=== PATIENT | female | born 1960 | race African-American/Black ===

== ENCOUNTER 2017-02-27 19:38 | Emergency (ER) | payer MEDICARE, OTHER ==
[~2017-02-27] VITALS: Ht 165.1 cm; Wt 99.8 kg
[~2017-02-27 19:38] MED LIST: ALBUTEROL SULF8.5 GM INH; AZITHROMYCIN250 MG ORAL; BENTYL10 MG ORAL; NORCO 5-325 TA1 EACH ORAL; PHENERGAN25 M1 ORAL; PREDNISONE20 MG ORAL; PREDNISONE50 MG ORAL; PROMETHAZINE-D118 ML ORAL; ROBITUSSIN DM5 ML PO; VALIUM10 MG ORAL; ZITHROMAX250 MG ORAL
[2017-02-27] MEDS ORDERED: Norco 10mg/325mg tab ORAL ONE (20:15)
[2017-02-27] MEDS ORDERED: NORCO 5-325 TA1 EAC1 ORAL (21:16)
[2017-02-27 21:29] VITALS: BP 159/99
[2017-02-27 21:30] VITALS: BP 159/94
--- NOTE | 2017-02-27 21:55 | Emergency Room Report ---
History of Present Illness General Chief Complaint: Pain Present Illness HPI The patient is a 56-year-old female presenting with left shoulder pain.The patient states that she was using a broom 1 weeks prior and felt pain to the left shoulder. She states that she's had similar pain years prior and had MRI which diagnosed her with a torn muscle although she is unsure which one it was. She denies surgical fixation. She states this feels identical and is described as an 8/10 dull ache. Pain does not radiate. She states she is unable to fully move shoulder. She denies any other symptoms including N, V, F, chills, SOB, CP , dizziness, blurred vision Allergies: Coded Allergies: PENICILLINS (Verified Allergy, Severe, Anaphylaxis, 02/26/13) CODEINE (Verified Allergy, Intermediate, HIVES, GI UPSET & UTACARIA, ) SULFA (SULFONAMIDE ANTIBIOTICS) (Verified Allergy, Unknown, 02/27/17) Patient History Past Medical History: see triage record Pertinent Family History: none Last Menstrual Period: Menopause Now: No Reviewed Nursing Documentation: PMH: Agreed, PSxH: Agreed Nursing Documentation-PMH Hx Hypertension: Yes Hx Diabetes: Yes - borderline Hx Neurological Problems: Yes - bells palsy Review of Systems All Other Systems: negative except mentioned in HPI Physical Exam Vital Signs Date Time Temp Pulse Resp B/P Pulse Ox O2 Delivery O2 Flow Rate FiO2 02/27/17 19:46 98.4 84 16 138/83 97 Room Air Sp02 EP Interpretation: reviewed, normal General Appearance: no apparent distress, alert, GCS 15, non-toxic Head: normocephalic, atraumatic Eyes: bilateral eye PERRL, bilateral eye normal inspection ENT: hearing grossly normal, normal pharynx, no angioedema, normal voice Neck: full range of motion, supple/symm/no masses Respiratory: chest non-tender, lungs clear, normal breath sounds, speaking full sentences Cardiovascular #1: regular rate, rhythm, no edema Gastrointestinal: normal bowel sounds, non tender, soft, non-distended, no guarding, no rebound Musculoskeletal: normal inspection, decreased range of motion - L shoulder, tender - TTP over the L anterior deltoid Neurologic: alert, oriented x3, responsive, sensory intact, other - L sided facial weakness chronically d/t past surgery Psychiatric: judgement/insight normal, memory normal, mood/affect normal, no suicidal/homicidal ideation Skin: normal color, no rash, warm/dry, well hydrated Lymphatic: no adenopathy Procedures Splinting Splinting : Consent: Verbal Location: L shoulder Pre-Made Type: sling Pre-Proc Neuro Vasc Exam: normal Post-Proc Neuro Vasc Exam: normal Patient Tolerated: Well Complications: None Medical Decision Making PA Attestation Dr. Barraza is my supervising physician. Patient management was discussed with my supervising physician Diagnostic Impression: Primary Impression: Shoulder pain, left Qualified Codes: M25.512 - Pain in left shoulder ER Course The patient is a 56-year-old female presenting with left shoulder pain. Ddx considered include but not limited to sprain/strain, fracture, contusion, CVA PE: vitals WNL. 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 There is TTP over the L anterior deltoid. Limited AROM at shoulder. Full AROM of elbow and hand. SILT. No edema. No ecchymosis. L arm placed in sling and given pain medication. Pt will be DC'ed home and will FU with PMD and orthopedics. ER precautions given Last Vital Signs Date Time Temp Pulse Resp B/P Pulse Ox O2 Delivery O2 Flow Rate FiO2 02/27/17 21:30 90 20 159/94 90 Room Air 02/27/17 21:29 98.1 Status: improved Disposition: HOME, SELF-CARE Condition: Improved Scripts Hydrocodone Bit/Acetaminophen 5-325* (NORCO 5-325 TABLET*) 1 Each Tablet 1 TAB ORAL Q6HR Y for For Pain, #10 TAB Prov: PEYTON AMAYA 02/27/17 Patient Instructions: Shoulder Pain Additional Instructions: I discussed my findings with the patient. All questions and concerns have been answered. Treatment and medication compliance have been addressed. I advised the patient that they need to follow up with PMD in 3-5 days. Return to ED if pain remains or worsens, numbness or tingling occurs, new rash is noticed, fever is noticed, or if needed for any reason. Patient verbalized understanding of discharge instructions. The patient may need MRI as instructed. She will followup with primary doctor as well as orthopedics. PEYTON AMAYA Feb 27, 2017 21:55
== END 2017-02-27 21:32 | disposition home or self-care (01) ==
LOC: EMR 20:25
DX: M25.512 Pain in left shoulder (principal); I10 Essential (primary) hypertension; G51.0 Bell's palsy; Z88.6 Allergy status to analgesic agent; Z88.0 Allergy status to penicillin; Z88.2 Allergy status to sulfonamides
CPT/HCPCS: 29240; 99283

== ENCOUNTER 2017-10-20 14:12 | Inpatient (IN) | payer MEDICARE, OTHER ==
[~2017-10-20] VITALS: Ht 165.1 cm; Wt 97.1 kg
[~2017-10-20 14:12] MED LIST changes: +NORCO 5-325 TA1 EAC1 ORAL
[2017-10-20] MEDS ORDERED: Morphine Sulfate 4mg/ml Inj IVP ONE (15:00)
[2017-10-20] MEDS ORDERED: Ipratropium 0.02% Inh Soln 2.5ml UD HHN ONE (15:00)
[2017-10-20] MEDS ORDERED: Levalbuterol Inh UD 1.25mg/0.5ml HHN ONE (15:00)
--- NOTE | 2017-10-20 15:06 | Emergency Room Report ---
History of Present Illness General Chief Complaint: Generalized Weakness Source: Patient Present Illness HPI Patient present with complaints of bodyaches\ pain to the forehead Fever Cough Patient has increased nausea dry heaving Denies any diarrhea Mild epigastric discomfort Symptoms started on Friday Denies any neck pain or photophobia Bodyache and headache is 4/10 Denies any recent travel denies any focal weakness Allergies: Coded Allergies: PENICILLINS (Verified Allergy, Severe, Anaphylaxis, 02/26/13) SULFA (SULFONAMIDE ANTIBIOTICS) (Verified Allergy, Unknown, 02/27/17) Patient History Past Medical History: see triage record Pertinent Family History: none Reviewed Nursing Documentation: PMH: Agreed, PSxH: Agreed Nursing Documentation-PMH Hx Hypertension: Yes Hx Diabetes: Yes - borderline Hx Neurological Problems: Yes - bells palsy Review of Systems All Other Systems: negative except mentioned in HPI Physical Exam Vital Signs Date Time Temp Pulse Resp B/P (MAP) Pulse Ox O2 Delivery O2 Flow Rate FiO2 10/20/17 14:40 100.6 127 18 138/85 92 Room Air Sp02 EP Interpretation: reviewed, normal General Appearance: mild distress - patient appears uncomfortable Head: normocephalic, atraumatic Eyes: bilateral eye PERRL, bilateral eye EOMI ENT: hearing grossly normal, normal pharynx, TMs + canals normal, uvula midline Neck: full range of motion, supple, no meningismus, no bony tend Respiratory: no respiratory distress, no retraction, no accessory muscle use, crackles - both lower lobes Cardiovascular #1: normal peripheral pulses, no edema, no gallop, no JVD, no murmur, tachycardia Gastrointestinal: normal bowel sounds, non tender, soft, no mass, no organomegaly, non-distended, no guarding, no hernia, no pulsatile mass, no rebound Genitourinary: no CVA tenderness Musculoskeletal: normal inspection Neurologic: oriented x3, responsive, director phone III-XII nml as tested, motor strength/ tone normal, sensory intact Psychiatric: mood/affect normal Skin: normal color, no rash, warm/dry, palpation normal Lymphatic: normal inspection, no adenopathy Medical Decision Making Diagnostic Impression: Primary Impression: Flu syndrome Additional Impression: Dyspnea ER Course Patient is a fairly complex patient with multiple differential to consideration including but not limited to cardiac cardiopulmonary, infectious and vascular emergencies Patient's blood work or at baseline levels chest x-ray does not show any obvious acute pathology patient did better with her tachycardia At this time still feels very weak feels somewhat short of breath Patient was initially as a home by herself and does not feel comfortable and will be admitted for further inpatient care Labs Test 10/20/17 15:17 10/20/17 17:08 White Blood Count 8.2 K/UL (4.8-10.8) Red Blood Count 4.78 M/UL (4.20-5.40) Hemoglobin 14.4 G/DL (12.0-16.0) Hematocrit 42.2 % (37.0-47.0) Mean Corpuscular Volume 88 FL (80-99) Mean Corpuscular Hemoglobin 30.1 PG (27.0-31.0) Mean Corpuscular Hemoglobin Concent 34.0 G/DL (32.0-36.0) Red Cell Distribution Width 12.4 % (11.6-14.8) Platelet Count 296 K/UL (150-450) Mean Platelet Volume 7.4 FL (6.5-10.1) Neutrophils (%) (Auto) 76.3 % (45.0-75.0) Lymphocytes (%) (Auto) 15.5 % (20.0-45.0) Monocytes (%) (Auto) 7.0 % (1.0-10.0) Eosinophils (%) (Auto) 0.0 % (0.0-3.0) Basophils (%) (Auto) 1.3 % (0.0-2.0) Sodium Level 131 MMOL/L (136-145) Potassium Level 3.5 MMOL/L (3.5-5.1) Chloride Level 95 MMOL/L (98-107) Carbon Dioxide Level 24 MMOL/L (21-32) Anion Gap 12 mmol/L (5-15) Blood Urea Nitrogen 8 mg/dL (7-18) Creatinine 1.1 MG/DL (0.55-1.30) Estimat Glomerular Filtration Rate > 60 mL/min (>60) Glucose Level 115 MG/DL (74-106) Lactic Acid Level 1.20 mmol/L (0.66-2.22) Calcium Level 9.8 MG/DL (8.5-10.1) Total Bilirubin 0.8 MG/DL (0.2-1.0) Aspartate Amino Transf (AST/SGOT) 27 U/L (15-37) Alanine Aminotransferase (ALT/SGPT) 12 U/L (12-78) Alkaline Phosphatase 112 U/L (46-116) Total Creatine Kinase 844 U/L (26-308) Creatine Kinase MB 1.1 NG/ML (0.0-3.6) Creatine Kinase MB Relative Index 0.1 Troponin I 0.015 ng/mL (0.000-0.056) Pro-B-Type Natriuretic Peptide 372 pg/mL (0-125) Total Protein 8.5 G/DL (6.4-8.2) Albumin 4.0 G/DL (3.4-5.0) Globulin 4.5 g/dL Albumin/Globulin Ratio 0.9 (1.0-2.7) Lipase 70 U/L (73-393) Rhythm Strip Diag. Results EP Interpretation: yes Rate: 110 Rhythm: no PVC's, no ectopy, other - sinus tach Chest X-Ray Diagnostic Results Chest X-Ray Diagnostic Results : Chest X-Ray Ordered: Yes # of Views/Limited/Complete: 1 View Indication: Shortness of Breath EP Interpretation: Yes Interpretation: no consolidation, no effusion, no pneumothorax, other - cardiomegaly Impression: No acute disease Last Vital Signs Date Time Temp Pulse Resp B/P (MAP) Pulse Ox O2 Delivery O2 Flow Rate FiO2 10/20/17 14:40 100.6 127 18 138/85 92 Room Air Status: improved Disposition: ADMITTED INPATIENT Condition: Serious ROCIO SOUZA D.O. Oct 20, 2017 15:06
[2017-10-20 15:34] LABS: BASOPHILS % (AUTO) 1.3 % (0.0-2.0); HEMATOCRIT 42.2 % (37.0-47.0); HEMOGLOBIN 14.4 G/DL (12.0-16.0); LYMPHOCYTES % (AUTO) 15.5 % (20.0-45.0); MEAN CORPUSCULAR VOLUME 88 FL (80-99); NEUTROPHILS % (AUTO) 76.3 % (45.0-75.0); PLATELET COUNT 296 K/UL (150-450); RED BLOOD COUNT 4.78 M/UL (4.20-5.40); RED CELL DISTRIBUTION WIDTH 12.4 % (11.6-14.8); WHITE BLOOD COUNT 8.2 K/UL (4.8-10.8)
--- NOTE | 2017-10-20 16:07 | Diagnostic Imaging Report ---
Indication: Dyspnea Technique: XRAY Chest 1v Comparison: 06/17/2014 Findings: Stable cardiomegaly. There is no focal airspace consolidation, pleural effusion or pneumothorax. No acute osseous abnormality seen. Impression: No radiographic evidence of acute cardiopulmonary disease. Stable cardiomegaly.
[2017-10-20 16:08] LABS: ANION GAP 12 mmol/L (5-15); BLOOD UREA NITROGEN 8 mg/dL (7-18); CALCIUM 9.8 MG/DL (8.5-10.1); CARBON DIOXIDE 24 MMOL/L (21-32); CHLORIDE 95 MMOL/L (98-107); CREATININE 1.1 MG/DL (0.55-1.30); POTASSIUM 3.5 MMOL/L (3.5-5.1); SODIUM 131 MMOL/L (136-145)
[2017-10-20 16:16] LABS: ALANINE AMINOTRANSFERASE 12 U/L (12-78); ALBUMIN/GLOBULIN RATIO 0.9 (1.0-2.7); ALKALINE PHOSPHATASE 112 U/L (46-116); ASPARTATE AMINO TRANSFERASE 27 U/L (15-37); CKMB 1.1 NG/ML (0.0-3.6); CREATINE KINASE 844 U/L (26-308)
[2017-10-20 16:34] LABS: BILIRUBIN,TOTAL 0.8 MG/DL (0.2-1.0)
[2017-10-20 16:47] VITALS: BP 152/70
[2017-10-20 18:02] VITALS: BP 138/65
[2017-10-20 18:07] LABS: APPEARANCE,URINE CLEAR; BILIRUBIN, URINE NEGATIVE (NEGATIVE); GLUCOSE, URINE (UA) NEGATIVE (NEGATIVE); KETONES,URINE NEGATIVE (NEGATIVE); LEUKOCYTE ESTERASE ,URINE 1+ (NEGATIVE); NITRITE,URINE NEGATIVE (NEGATIVE); PH,URINE 6 (4.5-8.0); PROTEIN,URINE 2+ (NEGATIVE); UROBILINOGEN,URINE NORMAL MG/DL (0.0-1.0)
[2017-10-20 18:11] LABS: COLOR,URINE YELLOW
[2017-10-20] MEDS ORDERED: HYDROCHLOROTH12.5 M2 ORAL (18:17)
[2017-10-20] MEDS ORDERED: NORVASC10 MG ORAL (18:17)
[2017-10-20] MEDS ORDERED: VENTOLIN HFA18 GM INH (18:17)
[2017-10-20] MEDS ORDERED: SYMBICORT 16010.2 G1 IH (18:17)
[2017-10-20] MEDS ORDERED: LORazepam Inj 2mg/ml 1ml IV PRN (18:45)
[2017-10-20] MEDS ORDERED: Morphine Sulfate 4mg/ml Inj IVP PRN (18:45)
[2017-10-20] MEDS ORDERED: Miralax 17gm pkt ORAL PRN (18:45)
[2017-10-20] MEDS: Albuterol/Ipratropium 3ml neb HHN PRN (19:43)
[2017-10-20 20:00] VITALS: BP 117/92
[2017-10-20] MEDS ORDERED: Vancomycin 1.5gm/D5W 250ml 250 ML IVPB SCH (20:00)
[2017-10-20] MEDS: Heparin 5000 units/ml inj SUBQ SCH (20:21)
[2017-10-20] MEDS ORDERED: Cefepime HCl 2 GM in D5W 110 ML IV SCH (21:00)
[2017-10-21] VITALS: BP 129/75
[2017-10-21 04:00] VITALS: BP 116/75
[2017-10-21] MEDS ORDERED: MECLIZINE HCL25 MG ORAL (06:09)
[2017-10-21 07:22] LABS: BASOPHILS % (AUTO) 1.7 % (0.0-2.0); HEMATOCRIT 42.4 % (37.0-47.0); LYMPHOCYTES % (AUTO) 28.2 % (20.0-45.0); MEAN CORPUSCULAR VOLUME 91 FL (80-99); MONOCYTES % (AUTO) 14.9 % (1.0-10.0); NEUTROPHILS % (AUTO) 55.2 % (45.0-75.0); PLATELET COUNT 264 K/UL (150-450); RED BLOOD COUNT 4.66 M/UL (4.20-5.40); RED CELL DISTRIBUTION WIDTH 12.8 % (11.6-14.8); WHITE BLOOD COUNT 5.3 K/UL (4.8-10.8)
[2017-10-21 07:45] LABS: ALBUMIN 3.4 G/DL (3.4-5.0); ANION GAP 8 mmol/L (5-15); BLOOD UREA NITROGEN 9 mg/dL (7-18); CALCIUM 9.4 MG/DL (8.5-10.1); CARBON DIOXIDE 26 MMOL/L (21-32); CHLORIDE 101 MMOL/L (98-107); CREATININE 1.1 MG/DL (0.55-1.30); PHOSPHORUS 4.2 MG/DL (2.5-4.9); SODIUM 135 MMOL/L (136-145)
[2017-10-21] MEDS: Meclizine 25mg tab ORAL SCH (08:27)
[2017-10-21 08:32] VITALS: BP 141/86
[2017-10-21] MEDS: Heparin 5000 units/ml inj SUBQ SCH ×2 (08:38→21:00)
[2017-10-21] MEDS: Albuterol/Ipratropium 3ml neb HHN PRN ×2 (08:58→20:06)
--- NOTE | 2017-10-21 11:10 | Consultation ---
Consult Note Consult Note ID DIC # [id number] GLENDA NORWOOD M.D. Oct 21, 2017 11:10
[2017-10-21 11:39] VITALS: BP 119/60
[2017-10-21] MEDS ORDERED: Promethazine/Codeine 5ml UD ORAL PRN (11:45)
--- NOTE | 2017-10-21 11:59 | History and Physical ---
History of Present Illness General Date patient seen: Oct 21, 2017 Reason for Hospitalization: Generalized Weakness Present Illness HPI 57 year old female with hx of COPD presented with complaints of body-aches\ pain to the forehead, Fever and Cough for s few days. Patient has increased nausea dry heaving. She was sos short of breath that she couldn't smoke any more. Allergies: Coded Allergies: LISINOPRIL (Verified Allergy, Severe, 10/20/17) swellinh PENICILLINS (Verified Allergy, Severe, Anaphylaxis, 02/26/13) SULFA (SULFONAMIDE ANTIBIOTICS) (Verified Allergy, Unknown, 02/27/17) Medication History Scheduled Amlodipine Besylate (Norvasc), 10 MG ORAL DAILY, (Reported) Hydrochlorothiazide* (Hydrochlorothiazide*), 12.5 MG ORAL DAILY, (Reported) Meclizine Hcl* (Meclizine*), 25 MG ORAL DAILY, (Reported) Scheduled PRN Albuterol Sulfate (Ventolin Hfa), 1 PUFF INH EVERY 6 HOURS PRN for Prn Chest Pain, (Reported) Budesonide/Formoterol Fumarate (Symbicort 160-4.5 Mcg Inhaler), 1 PUFF IH NEEDED PRN for PRN, (Reported) Hydrocodone Bit/Acetaminophen 5-325* ([place] 5-325 Tablet*), 1 TAB ORAL Q6HR PRN for For Pain Patient History Healthcare decision maker Resuscitation status Full Code Advanced Directive on File Past Medical/Surgical History Past Medical/Surgical History: (1) COPD (chronic obstructive pulmonary disease) Review of Systems All Other Systems: negative except mentioned in HPI Physical Exam General Appearance: WD/WN Lines, tubes and drains: peripheral HEENT: normocephalic, atraumatic Neck: non-tender, normal alignment Respiratory/Chest: rhonchi - bilaterally, expiratory wheezing Cardiovascular/Chest: normal peripheral pulses Last 24 Hour Vital Signs Date Time Temp Pulse Resp B/P (MAP) Pulse Ox O2 Delivery O2 Flow Rate FiO2 10/21/17 09:03 92 20 100 Nasal Cannula 2.0 28 10/21/17 08:55 87 20 97 Nasal Cannula 2.0 28 10/21/17 08:32 98.2 89 19 141/86 97 10/21/17 08:29 89 141/84 10/21/17 07:58 Nasal Cannula 2.0 10/21/17 07:55 97 Nasal Cannula 2.0 10/21/17 07:55 97 20 Nasal Cannula 2.0 28 10/21/17 04:00 98.1 97 20 116/75 94 Nasal Cannula 2.0 10/21/17 00:00 98.4 100 20 129/75 98 Nasal Cannula 2.0 10/20/17 20:26 98 Nasal Cannula 2.0 10/20/17 20:25 97 26 Room Air 21 10/20/17 20:00 Nasal Cannula 2.0 10/20/17 20:00 97.7 97 20 117/92 98 Nasal Cannula 2.0 10/20/17 19:55 101 24 100 Room Air 21 10/20/17 19:44 97 26 98 Room Air 21 10/20/17 18:30 98.9 99 18 138/65 98 Room Air 21 10/20/17 18:02 98.9 99 18 138/65 98 Room Air 10/20/17 17:58 98.9 10/20/17 16:47 103.0 111 23 152/70 95 Room Air 10/20/17 15:54 100.5 10/20/17 15:27 122 24 98 Room Air 21 10/20/17 15:22 114 26 Room Air 21 10/20/17 15:16 114 26 92 Room Air 21 10/20/17 14:40 100.6 127 18 138/85 92 Room Air Intake and Output 10/20/17 10/21/17 19:00 07:00 Intake Total 700.000 ml Balance 700.000 ml Intake IV Total 700.000 ml # Voids 1 6 Laboratory Tests Test 10/20/17 15:17 10/20/17 17:08 10/21/17 04:45 White Blood Count 8.2 K/UL (4.8-10.8) 5.3 K/UL (4.8-10.8) Red Blood Count 4.78 M/UL (4.20-5.40) 4.66 M/UL (4.20-5.40) Hemoglobin 14.4 G/DL (12.0-16.0) 14.0 G/DL (12.0-16.0) Hematocrit 42.2 % (37.0-47.0) 42.4 % (37.0-47.0) Mean Corpuscular Volume 88 FL (80-99) 91 FL (80-99) Mean Corpuscular Hemoglobin 30.1 PG (27.0-31.0) 29.9 PG (27.0-31.0) Mean Corpuscular Hemoglobin Concent 34.0 G/DL (32.0-36.0) 32.9 G/DL (32.0-36.0) Red Cell Distribution Width 12.4 % (11.6-14.8) 12.8 % (11.6-14.8) Platelet Count 296 K/UL (150-450) 264 K/UL (150-450) Mean Platelet Volume 7.4 FL (6.5-10.1) 7.5 FL (6.5-10.1) Neutrophils (%) (Auto) 76.3 % (45.0-75.0) H 55.2 % (45.0-75.0) Lymphocytes (%) (Auto) 15.5 % (20.0-45.0) L 28.2 % (20.0-45.0) Monocytes (%) (Auto) 7.0 % (1.0-10.0) 14.9 % (1.0-10.0) H Eosinophils (%) (Auto) 0.0 % (0.0-3.0) 0.0 % (0.0-3.0) Basophils (%) (Auto) 1.3 % (0.0-2.0) 1.7 % (0.0-2.0) Sodium Level 131 MMOL/L (136-145) L 135 MMOL/L (136-145) L Potassium Level 3.5 MMOL/L (3.5-5.1) 4.0 MMOL/L (3.5-5.1) Chloride Level 95 MMOL/L (98-107) L 101 MMOL/L (98-107) Carbon Dioxide Level 24 MMOL/L (21-32) 26 MMOL/L (21-32) Anion Gap 12 mmol/L (5-15) 8 mmol/L (5-15) Blood Urea Nitrogen 8 mg/dL (7-18) 9 mg/dL (7-18) Creatinine 1.1 MG/DL (0.55-1.30) 1.1 MG/DL (0.55-1.30) Estimat Glomerular Filtration Rate > 60 mL/min (>60) > 60 mL/min (>60) Glucose Level 115 MG/DL (74-106) H 98 MG/DL (74-106) Lactic Acid Level 1.20 mmol/L (0.66-2.22) Calcium Level 9.8 MG/DL (8.5-10.1) 9.4 MG/DL (8.5-10.1) Total Bilirubin 0.8 MG/DL (0.2-1.0) Aspartate Amino Transf (AST/SGOT) 27 U/L (15-37) Alanine Aminotransferase (ALT/SGPT) 12 U/L (12-78) Alkaline Phosphatase 112 U/L (46-116) Total Creatine Kinase 844 U/L (26-308) H Creatine Kinase MB 1.1 NG/ML (0.0-3.6) Creatine Kinase MB Relative Index 0.1 Troponin I 0.015 ng/mL (0.000-0.056) Pro-B-Type Natriuretic Peptide 372 pg/mL (0-125) H Total Protein 8.5 G/DL (6.4-8.2) H Albumin 4.0 G/DL (3.4-5.0) 3.4 G/DL (3.4-5.0) Globulin 4.5 g/dL Albumin/Globulin Ratio 0.9 (1.0-2.7) L Lipase 70 U/L (73-393) L Urine Color Yellow Urine Appearance Clear Urine pH 6 (4.5-8.0) Urine Specific [place] 1.010 (1.005-1.035) Urine Protein 2+ (NEGATIVE) H Urine Glucose (UA) Negative (NEGATIVE) Urine Ketones Negative (NEGATIVE) Urine Occult Blood 4+ (NEGATIVE) H Urine Nitrite Negative (NEGATIVE) Urine Bilirubin Negative (NEGATIVE) Urine Urobilinogen Normal MG/DL (0.0-1.0) Urine Leukocyte Esterase 1+ (NEGATIVE) H Urine RBC 2-4 /HPF (0 - 2) H Urine WBC 2-4 /HPF (0 - 2) Urine Squamous Epithelial Cells Few /LPF (NONE/OCC) Urine Bacteria Few /HPF (NONE) Phosphorus Level 4.2 MG/DL (2.5-4.9) Microbiology Date/Time Source Procedure Growth Status 10/20/17 15:50 Nasal Nares Influenza Types A,B Antigen (SUJEY) - Final Complete Height (Feet): 5 Height (Inches): 5.00 Weight (Pounds): 214 Medications Current Medications Medications (Trade) Dose Ordered Sig/Gael Route PRN Reason Start Time Stop Time Status Last Admin Dose Admin Acetaminophen (Tylenol) 650 mg Q4H PRN ORAL FEVER 10/20/17 18:45 11/19/17 18:44 10/21/17 08:27 Albuterol/ Ipratropium (Albuterol/ Ipratropium) 3 ml Q4H PRN HHN Shortness of Breath 10/20/17 18:45 10/25/17 18:44 10/21/17 08:58 Amlodipine Besylate (Norvasc) 10 mg DAILY ORAL 10/21/17 09:00 11/20/17 08:59 10/21/17 08:29 Dextrose (Dextrose 50%) STAT PRN IV Hypoglycemia 10/20/17 18:45 11/19/17 18:44 Heparin Sodium (Porcine) (Heparin 5000 units/ml) 5,000 units EVERY 12 HOURS SUBQ 10/20/17 21:00 11/19/17 20:59 10/21/17 08:38 Levofloxacin 100 ml @ 100 mls/hr Q24H IVPB 10/20/17 22:00 10/27/17 21:59 10/20/17 22:32 Lorazepam (Ativan 2mg/ml 1ml) 2 mg Q2H PRN IV For Anxiety 10/20/17 18:45 10/27/17 18:44 Meclizine HCl (Antivert) 25 mg DAILY ORAL 10/21/17 09:00 11/20/17 08:59 10/21/17 08:27 Morphine Sulfate (Morphine Sulfate) 4 mg Q4H PRN IVP Severe Pain (Pain Scale 7-10) 10/20/17 18:45 10/27/17 18:44 Ondansetron HCl (Zofran) 4 mg Q6H PRN IVP Nausea & Vomiting 10/20/17 18:45 11/19/17 18:44 10/21/17 08:31 Polyethylene Glycol (Miralax) 17 gm DAILYPRN PRN ORAL Constipation 10/20/17 18:45 11/19/17 18:44 Sodium Chloride 1,000 ml @ 50 mls/hr Q20H IV 10/20/17 19:00 11/19/17 18:59 10/20/17 19:09 Assessment/Plan Problem List: (1) COPD exacerbation (2) Upper respiratory infection ICD Codes: J06.9 - Acute upper respiratory infection, unspecified SNOMED: 42586105 (3) Dyspnea ICD Codes: R06.00 - Dyspnea, unspecified SNOMED: 185625341 (4) Flu syndrome ICD Codes: J11.1 - Influenza due to unidentified influenza virus with other respiratory manifestations SNOMED: 7240528 Assessment/Plan respiratory treatment IV steroids IV abx check sputum MONAE YUNG Oct 21, 2017 11:58
[2017-10-21] MEDS: Solu-MEDROL 125mg Inj IV SCH ×3 (12:00→23:56)
[2017-10-21] MEDS: Promethazine Plain 6.25mg/5ml ORAL PRN ×2 (13:12→21:03)
[2017-10-21 15:58] VITALS: BP 149/96
[2017-10-21] MEDS: Albuterol ud Inhalation HHN SCH ×3 (16:05→22:27)
[2017-10-21] MEDS ORDERED: ASPIRIN-LOW81 MG ORAL (16:32)
[2017-10-21] MEDS ORDERED: DIAZEPAM10 MG ORAL (16:32)
[2017-10-21] MEDS ORDERED: HYDROCHLOROTHIA25 MG ORAL (16:32)
[2017-10-21] MEDS ORDERED: IBUPROFEN200 MG ORAL (16:32)
--- NOTE | 2017-10-21 17:30 | Consultation ---
DATE OF CONSULTATION: 10/21/2017 INFECTIOUS DISEASE CONSULTATION CONSULTING PHYSICIAN: Noe Mejia M.D REFERRING PHYSICIAN: Anabell Eastman M.D. REASON FOR CONSULTATION: Evaluation of the patient for pneumonia and antibiotic management. HISTORY OF PRESENT ILLNESS: The patient is a 57-year-old female with multiple medical problems, who has been admitted to this medical center for shortness of breath and cough. Infectious Disease consultation requested for evaluation of the patient's antibiotic management. The patient has been sick with some upper respiratory tract symptoms that progressed with a cough that now has began productive. The patient also developed progressive shortness of breath and because of that the patient came to the emergency room. PAST MEDICAL HISTORY: Significant for: 1. Hernandez's palsy. 2. Vertigo. 3. Acoustic neuroma. 4. History of fibroids. 5. Status post cholecystectomy. 6. History of prolapsed bladder. 7. Borderline diabetes. ALLERGIES: Penicillin and sulfa. FAMILY HISTORY: Noncontributory. REVIEW OF SYSTEMS: HEENT: No recent change in vision or hearing. The patient has left-sided stiffness. NECK: No pain. PULMONARY: As mentioned above. CARDIOVASCULAR: No chest pain. GASTROINTESTINAL/ABDOMEN: The patient has nausea, but no vomiting or diarrhea. GENITOURINARY: No dysuria. NEUROLOGIC: No seizure. SOCIAL HISTORY: Significant for smoking. MEDICATIONS: Vancomycin and Levaquin. PHYSICAL EXAMINATION: VITAL SIGNS: Temperature 98, blood pressure 141/86, pulse 89, respiratory rate 18, and T-max 103. HEENT: No pale conjunctivae. No icterus. CHEST: Coarse breathing sounds. HEART: S1 and S2. ABDOMEN: Soft, obese. EXTREMITIES: No cyanosis at this time. NEUROLOGIC: Awake. LABORATORY DATA: White blood cells 5.3, hemoglobin 14, and platelets 264,000. UA unremarkable. BUN 9 and creatinine 1. ALT, AST, and alkaline phosphatase are unremarkable. Total CK 844. Influenza A and B negative. Chest x-ray, no acute cardiopulmonary disease, cardiomegaly. ASSESSMENT: The patient is a 57-year-old female with: 1. Fever. 2. Bronchitis. 3. Probable upper respiratory tract viral infection. 4. . PLAN: 1. We will continue the patient on Levaquin, discontinue vancomycin. 2. Monitor CBC. 3. Monitor BMP. 4. Monitor chest x-ray. 5. Blood culture. 6. . 7. Based on the patient's labs, we will do further recommendation. Thank you, Dr. Eastman, for allowing me to participate in the care of this patient. I will follow the patient with you during this hospitalization. Noe Mejia M.D. DR: VITO JOB#: [id number] CC:
[2017-10-21 20:00] VITALS: BP 132/90
[2017-10-22] VITALS: BP 134/79
[2017-10-22] MEDS: Albuterol ud Inhalation HHN SCH ×2 (03:46→06:50)
[2017-10-22 04:07] VITALS: BP 165/87
[2017-10-22 04:15] VITALS: BP 157/97
[2017-10-22] MEDS: Solu-MEDROL 125mg Inj IV SCH ×2 (05:21→12:00)
[2017-10-22] MEDS: Albuterol/Ipratropium 3ml neb HHN PRN (06:49)
[2017-10-22 07:56] LABS: BASOPHILS % (AUTO) 0.8 % (0.0-2.0); HEMATOCRIT 39.7 % (37.0-47.0); HEMOGLOBIN 13.1 G/DL (12.0-16.0); MEAN CORPUSCULAR VOLUME 90 FL (80-99); MONOCYTES % (AUTO) 5.8 % (1.0-10.0); NEUTROPHILS % (AUTO) 66.4 % (45.0-75.0); PLATELET COUNT 290 K/UL (150-450); RED BLOOD COUNT 4.39 M/UL (4.20-5.40); RED CELL DISTRIBUTION WIDTH 12.7 % (11.6-14.8); WHITE BLOOD COUNT 6.2 K/UL (4.8-10.8)
[2017-10-22 08:00] VITALS: BP 139/74
[2017-10-22 08:20] LABS: ALANINE AMINOTRANSFERASE 71 U/L (12-78); ALBUMIN 3.6 G/DL (3.4-5.0); ALBUMIN/GLOBULIN RATIO 0.8 (1.0-2.7); ALKALINE PHOSPHATASE 119 U/L (46-116); ANION GAP 12 mmol/L (5-15); ASPARTATE AMINO TRANSFERASE 71 U/L (15-37); BILIRUBIN,TOTAL 0.4 MG/DL (0.2-1.0); BLOOD UREA NITROGEN 14 mg/dL (7-18); CALCIUM 9.7 MG/DL (8.5-10.1); CARBON DIOXIDE 25 MMOL/L (21-32); CHLORIDE 102 MMOL/L (98-107); CREATININE 1.2 MG/DL (0.55-1.30); POTASSIUM 3.8 MMOL/L (3.5-5.1); SODIUM 139 MMOL/L (136-145)
[2017-10-22 08:33] VITALS: BP 139/74
[2017-10-22] MEDS: Meclizine 25mg tab ORAL SCH (08:33)
[2017-10-22 08:34] LABS: PHOSPHORUS 4.4 MG/DL (2.5-4.9)
[2017-10-22] MEDS: Heparin 5000 units/ml inj SUBQ SCH (08:34)
--- NOTE | 2017-10-22 10:37 | Infectious Diseases Prog Note ---
Assessment/Plan Assessment/Plan ASSESSMENT: The patient is a 57-year-old female with: Fever, SP Bronchitis Probable upper respiratory tract viral infection. smoker Hernandez's palsy Vertigo Acoustic neuroma History of fibroids Status post cholecystectomy History of prolapsed bladder Borderline diabetes PLAN: We will continue the patient on Levaquin d# 2 / 5 10/21 SP vancomycin d# 1 Monitor CBC. Monitor BMP. Monitor chest x-ray. Blood culture. Sp culture Subjective Allergies: Coded Allergies: LISINOPRIL (Verified Allergy, Severe, 10/20/17) swellinh PENICILLINS (Verified Allergy, Severe, Anaphylaxis, 02/26/13) SULFA (SULFONAMIDE ANTIBIOTICS) (Verified Allergy, Unknown, 02/27/17) Subjective afebrile Objective Vital Signs Last 24 Hour Vital Signs Date Time Temp Pulse Resp B/P (MAP) Pulse Ox O2 Delivery O2 Flow Rate FiO2 10/22/17 08:33 87 139/74 10/22/17 08:00 97.0 87 22 139/74 94 10/22/17 06:57 98 20 100 Room Air 10/22/17 06:52 Room Air 10/22/17 06:45 94 20 97 Room Air 10/22/17 06:45 97 Room Air 10/22/17 04:15 157/97 10/22/17 04:07 97.7 94 21 165/87 95 10/22/17 03:57 95 20 100 Nasal Cannula 2.0 28 10/22/17 03:47 88 26 97 Room Air 10/22/17 00:00 97.9 94 21 134/79 96 10/21/17 22:38 88 20 100 Nasal Cannula 2.0 28 10/21/17 22:28 98 26 97 Room Air 21 10/21/17 20:07 104 26 99 Room Air 21 10/21/17 20:06 99 Room Air 10/21/17 20:06 Room Air 10/21/17 20:00 97.6 98 21 132/90 94 10/21/17 16:08 90 20 100 Nasal Cannula 2.0 28 10/21/17 15:58 97.7 91 20 149/96 95 10/21/17 15:55 85 20 97 Nasal Cannula 2.0 28 10/21/17 11:39 Nasal Cannula 2.0 10/21/17 11:39 98.0 83 19 119/60 96 Height (Feet): 5 Height (Inches): 5.00 Weight (Pounds): 214 Respiratory/Chest: no respiratory distress Cardiovascular: regularly irregular Abdomen: non distended Microbiology Date/Time Source Procedure Growth Status 10/20/17 15:17 Blood Blood Culture - Preliminary NO GROWTH AFTER 24 HOURS Resulted 10/20/17 15:10 Blood Blood Culture - Preliminary NO GROWTH AFTER 24 HOURS Resulted 10/21/17 08:45 Sputum Gram Stain Pending Resulted 10/21/17 08:45 Sputum Sputum Culture - Preliminary NORMAL UPPER RESPIRATORY LILLY AT 24 ... Resulted 10/20/17 15:50 Nasal Nares Influenza Types A,B Antigen (SUJEY) - Final Complete Laboratory Tests Test 10/22/17 07:00 White Blood Count 6.2 K/UL (4.8-10.8) Red Blood Count 4.39 M/UL (4.20-5.40) Hemoglobin 13.1 G/DL (12.0-16.0) Hematocrit 39.7 % (37.0-47.0) Mean Corpuscular Volume 90 FL (80-99) Mean Corpuscular Hemoglobin 29.8 PG (27.0-31.0) Mean Corpuscular Hemoglobin Concent 33.0 G/DL (32.0-36.0) Red Cell Distribution Width 12.7 % (11.6-14.8) Platelet Count 290 K/UL (150-450) Mean Platelet Volume 7.2 FL (6.5-10.1) Neutrophils (%) (Auto) 66.4 % (45.0-75.0) Lymphocytes (%) (Auto) 27.0 % (20.0-45.0) Monocytes (%) (Auto) 5.8 % (1.0-10.0) Eosinophils (%) (Auto) 0.0 % (0.0-3.0) Basophils (%) (Auto) 0.8 % (0.0-2.0) Erythrocyte Sedimentation Rate 52 MM/HR (0-30) H Sodium Level 139 MMOL/L (136-145) Potassium Level 3.8 MMOL/L (3.5-5.1) Chloride Level 102 MMOL/L (98-107) Carbon Dioxide Level 25 MMOL/L (21-32) Anion Gap 12 mmol/L (5-15) Blood Urea Nitrogen 14 mg/dL (7-18) Creatinine 1.2 MG/DL (0.55-1.30) Estimat Glomerular Filtration Rate 56.0 mL/min (>60) Glucose Level 164 MG/DL (74-106) H Calcium Level 9.7 MG/DL (8.5-10.1) Phosphorus Level 4.4 MG/DL (2.5-4.9) Magnesium Level 2.0 MG/DL (1.8-2.4) Total Bilirubin 0.4 MG/DL (0.2-1.0) Aspartate Amino Transf (AST/SGOT) 71 U/L (15-37) H Alanine Aminotransferase (ALT/SGPT) 71 U/L (12-78) Alkaline Phosphatase 119 U/L (46-116) H C-Reactive Protein, Quantitative 6.5 mg/dL (0.00-0.90) H Total Protein 7.9 G/DL (6.4-8.2) Albumin 3.6 G/DL (3.4-5.0) Globulin 4.3 g/dL Albumin/Globulin Ratio 0.8 (1.0-2.7) L Current Medications Medications (Trade) Dose Ordered Sig/Gael Route PRN Reason Start Time Stop Time Status Last Admin Dose Admin Acetaminophen (Tylenol) 650 mg Q4H PRN ORAL Mild Pain/Temp > 100.5 10/21/17 17:00 11/20/17 16:59 Albuterol/ Ipratropium (Albuterol/ Ipratropium) 3 ml Q4H PRN HHN Shortness of Breath 10/20/17 18:45 10/25/17 18:44 10/22/17 06:49 Amlodipine Besylate (Norvasc) 10 mg DAILY ORAL 10/21/17 09:00 11/20/17 08:59 10/22/17 08:33 Dextrose (Dextrose 50%) STAT PRN IV Hypoglycemia 10/20/17 18:45 11/19/17 18:44 Diazepam (Valium) 5 mg BIDPRN PRN ORAL For Anxiety 10/21/17 17:30 10/28/17 17:29 10/21/17 21:03 Heparin Sodium (Porcine) (Heparin 5000 units/ml) 5,000 units EVERY 12 HOURS SUBQ 10/20/17 21:00 11/19/17 20:59 10/21/17 08:38 Levofloxacin 100 ml @ 100 mls/hr Q24H IVPB 10/20/17 22:00 10/27/17 21:59 10/21/17 21:03 Lorazepam (Ativan 2mg/ml 1ml) 2 mg Q2H PRN IV For Anxiety 10/20/17 18:45 10/27/17 18:44 Meclizine HCl (Antivert) 25 mg DAILY ORAL 10/21/17 09:00 11/20/17 08:59 10/22/17 08:33 Methylprednisolone Sodium Succinate (Solu-MEDROL) 60 mg EVERY 6 HOURS IV 10/21/17 12:00 11/20/17 11:59 10/21/17 23:56 Morphine Sulfate (Morphine Sulfate) 4 mg Q4H PRN IVP Severe Pain (Pain Scale 7-10) 10/20/17 18:45 10/27/17 18:44 Ondansetron HCl (Zofran) 4 mg Q6H PRN IVP Nausea & Vomiting 10/20/17 18:45 11/19/17 18:44 10/21/17 08:31 Polyethylene Glycol (Miralax) 17 gm DAILYPRN PRN ORAL Constipation 10/20/17 18:45 11/19/17 18:44 Promethazine HCl (Phenergan Plain) 6.25 mg Q6H PRN ORAL For Cough 10/21/17 12:45 11/20/17 12:44 10/21/17 21:03 GLENDA NORWOOD M.D. Oct 22, 2017 10:36
[2017-10-22] MEDS ORDERED: LEVAQUIN500 MG ORAL (12:09)
[2017-10-22] MEDS ORDERED: prednisone (12:36)
[2017-10-22] MEDS ORDERED: PREDNISONE20 M1 PO ×2 (12:37→12:38)
[2017-10-22] MEDS ORDERED: Tubing IV Secondary IV ONE (13:04)
[2017-10-22] MEDS ORDERED: NS 275ml ONE (13:04)
--- NOTE | 2017-10-22 16:18 | Pulmonology Progress Note ---
Assessment/Plan Problems: (1) COPD exacerbation (2) Upper respiratory infection (3) Dyspnea (4) Flu syndrome Assessment/Plan improving taper steroids f/u ID recommendation dc home with oral meds Subjective ROS Limited/Unobtainable: No Allergies: Coded Allergies: LISINOPRIL (Verified Allergy, Severe, 10/20/17) swellinh PENICILLINS (Verified Allergy, Severe, Anaphylaxis, 02/26/13) SULFA (SULFONAMIDE ANTIBIOTICS) (Verified Allergy, Unknown, 02/27/17) Objective Last 24 Hour Vital Signs Date Time Temp Pulse Resp B/P (MAP) Pulse Ox O2 Delivery O2 Flow Rate FiO2 10/22/17 08:33 87 139/74 10/22/17 08:00 97.0 87 22 139/74 94 10/22/17 06:57 98 20 100 Room Air 10/22/17 06:52 Room Air 10/22/17 06:45 94 20 97 Room Air 21 10/22/17 06:45 97 Room Air 10/22/17 04:15 157/97 10/22/17 04:07 97.7 94 21 165/87 95 10/22/17 03:57 95 20 100 Nasal Cannula 2.0 28 10/22/17 03:47 88 26 97 Room Air 10/22/17 00:00 97.9 94 21 134/79 96 10/21/17 22:38 88 20 100 Nasal Cannula 2.0 28 10/21/17 22:28 98 26 97 Room Air 10/21/17 20:07 104 26 99 Room Air 21 10/21/17 20:06 99 Room Air 10/21/17 20:06 Room Air 10/21/17 20:00 97.6 98 21 132/90 94 Intake and Output 10/21/17 10/22/17 19:00 07:00 Intake Total 1130 ml 100 ml Balance 1130 ml 100 ml Intake Oral 880 ml IV Total 250 ml 100 ml # Voids 5 2 General Appearance: WD/WN HEENT: normocephalic, atraumatic, mucous membranes moist Respiratory/Chest: chest wall non-tender, no respiratory distress Cardiovascular: normal peripheral pulses, normal rate, no gallop/murmur Abdomen: normal bowel sounds, non distended, no scars Extremities: no clubbing Microbiology Date/Time Source Procedure Growth Status 10/20/17 15:17 Blood Blood Culture - Preliminary NO GROWTH AFTER 24 HOURS Resulted 10/20/17 15:10 Blood Blood Culture - Preliminary NO GROWTH AFTER 24 HOURS Resulted 10/21/17 08:45 Sputum Gram Stain - Final Resulted 10/21/17 08:45 Sputum Sputum Culture - Preliminary NORMAL UPPER RESPIRATORY LILLY AT 24 ... Resulted 10/20/17 15:50 Nasal Nares Influenza Types A,B Antigen (SUJEY) - Final Complete Laboratory Tests 10/22/17 07:00: White Blood Count 6.2, Red Blood Count 4.39, Hemoglobin 13.1, Hematocrit 39.7, Mean Corpuscular Volume 90, Mean Corpuscular Hemoglobin 29.8, Mean Corpuscular Hemoglobin Concent 33.0, Red Cell Distribution Width 12.7, Platelet Count 290, Mean Platelet Volume 7.2, Neutrophils (%) (Auto) 66.4, Lymphocytes (%) (Auto) 27.0, Monocytes (%) (Auto) 5.8, Eosinophils (%) (Auto) 0.0, Basophils (%) (Auto ) 0.8, Erythrocyte Sedimentation Rate 52H, Sodium Level 139, Potassium Level 3.8 , Chloride Level 102, Carbon Dioxide Level 25, Anion Gap 12, Blood Urea Nitrogen 14, Creatinine 1.2, Estimat Glomerular Filtration Rate 56.0, Glucose Level 164H, Calcium Level 9.7, Phosphorus Level 4.4, Magnesium Level 2.0, Total Bilirubin 0.4, Aspartate Amino Transf (AST/SGOT) 71H, Alanine Aminotransferase ( ALT/SGPT) 71, Alkaline Phosphatase 119H, C-Reactive Protein, Quantitative 6.5H, Total Protein 7.9, Albumin 3.6, Globulin 4.3, Albumin/Globulin Ratio 0.8L MONAE YUNG Oct 22, 2017 16:18
--- NOTE | 2017-10-23 14:57 | Discharge Summary ---
Discharge Summary Hospital Course Date of Admission Oct 20, 2017 at 17:04 Date of Discharge Oct 22, 2017 at 13:05 Admitting Diagnosis flu like symptoms, dyspnea HPI Ellen Gonzalez is a 57 year old female who was admitted on Oct 20, 2017 at 17:04 for Flu Like Symptoms Dyspnea Hospital Course [id number] Discharge Discharge Disposition Patient was discharged to Home (01) Discharge Diagnoses: Naomie Nunez NP Oct 23, 2017 14:57
--- NOTE | 2017-10-23 16:49 | Consultation ---
History of Present Illness General Date patient seen: Oct 21, 2017 Chief Complaint: Generalized Weakness Present Illness HPI 57-year-old female with multiple medical problems, who has been admitted to this medical center for shortness of breath and cough. the pt has been depressed, anxious, low energy and insomnia. no si/hi Allergies: Coded Allergies: LISINOPRIL (Verified Allergy, Severe, 10/20/17) swellinh PENICILLINS (Verified Allergy, Severe, Anaphylaxis, 02/26/13) SULFA (SULFONAMIDE ANTIBIOTICS) (Verified Allergy, Unknown, 02/27/17) Medication History Scheduled Amlodipine Besylate (Norvasc), 10 MG ORAL DAILY, (Reported) Aspirin (Aspirin EC), 81 MG ORAL DAILY, (Reported) Hydrochlorothiazide* (Hydrochlorothiazide*), 25 MG ORAL DAILY, (Reported) Ibuprofen (Ibuprofen*), 600 MG ORAL Q8H, (Reported) Levofloxacin* (Levaquin*), 500 MG ORAL DAILY, (Reported) Meclizine Hcl* (Meclizine*), 25 MG ORAL DAILY, (Reported) Prednisone (Prednisone), 40 MG PO DAILY, (Reported) Prednisone (Prednisone), 20 MG PO DAILY, (Reported) Prednisone (Prednisone), 10 MG PO DAILY, (Reported) Scheduled PRN Albuterol Sulfate (Ventolin Hfa), 1 PUFF INH EVERY 6 HOURS PRN for Prn Chest Pain, (Reported) Budesonide/Formoterol Fumarate (Symbicort 160-4.5 Mcg Inhaler), 1 PUFF IH NEEDED PRN for PRN, (Reported) Diazepam* (Diazepam*), 10 MG ORAL TWICE A DAY PRN for ANXIETY, (Reported) Hydrocodone Bit/Acetaminophen 5-325* ([place] 5-325 Tablet*), 1 TAB ORAL Q6HR PRN for For Pain Miscellaneous Medications [prednisone], (Reported) Discontinued Medications Hydrochlorothiazide* (Hydrochlorothiazide*), 12.5 MG ORAL DAILY, (Reported) Discontinued Reason: Medication dose changed Patient History Limited by: medical condition History Provided By: Patient, Medical Record, PMD Healthcare decision maker Resuscitation status Full Code Advanced Directive on File Past Medical/Surgical History Past Medical/Surgical History: (1) Shoulder pain (2) Upper respiratory infection (3) Ventral hernia (4) Abdominal pain (5) Shoulder pain, left (6) Bronchitis, acute (7) COPD (chronic obstructive pulmonary disease) (8) Upper respiratory infection (9) COPD exacerbation Review of Systems Psychiatric: Reports: prior hx, anxiety, depressed feelings, emotional problems Physical Exam General Appearance: alert Neurologic: alert, oriented x 3, responsive, depressed affect Height (Feet): 5 Height (Inches): 5.00 Weight (Pounds): 214 Assessment/Plan Status: stable Status Narrative mdd anxiety d/o -cont current meds Isacc Santa M.D. Oct 23, 2017 16:49
--- NOTE | 2017-10-23 16:50 | General Progress Note ---
Assessment/Plan Status: stable, progressing Assessment/Plan mdd -remeron 15mg qhs Subjective Date patient seen: Oct 22, 2017 Neurologic/Psychiatric: Reports: anxiety, depressed, emotional problems Allergies: Coded Allergies: LISINOPRIL (Verified Allergy, Severe, 10/20/17) swellinh PENICILLINS (Verified Allergy, Severe, Anaphylaxis, 02/26/13) SULFA (SULFONAMIDE ANTIBIOTICS) (Verified Allergy, Unknown, 02/27/17) Objective Height (Feet): 5 Height (Inches): 5.00 Weight (Pounds): 214 General Appearance: no apparent distress, alert Neurologic: alert, oriented x 3, responsive, depressed affect Isacc Santa M.D. Oct 23, 2017 16:49
--- NOTE | 2017-10-23 22:45 | Discharge Summary 2 SIG ---
DATE OF ADMISSION: 10/20/2017 DATE OF DISCHARGE: 10/22/2017 ACCOUNT ENGINEER: Noe Mejia M.D. BRIEF HOSPITAL COURSE: The patient is a 57-year-old female with history of chronic obstructive pulmonary disease, presented to ED with complaints of body aches and pain. The patient was having fever and cough for few days and was short of breath. Denied any recent travel or any sick contacts. On evaluation at ED, blood work did not show any leukocytosis and the patient continued to feel ill. Chest x-ray done showed no acute disease with no consolidation, no effusion, and no pneumothorax. She was seen by Infectious Disease specialist and vancomycin was switched to Levaquin. Influenza A and B were negative. She was placed on IV steroids. Blood culture did not isolate any growth. Sputum culture showed normal upper respiratory hermilo. Venous duplex was negative for acute DVT. Steroids were tapered and was eventually discharged home to continue oral medications. FINAL DIAGNOSES: 1. Acute chronic obstructive pulmonary disease exacerbation. 2. Upper respiratory infection. 3. Dyspnea. 4. Flu-like syndrome. 5. Current smoker. 6. Hernandez's palsy. 7. Vertigo. 8. Acoustic neuroma. 9. Borderline diabetes. DISPOSITION: The patient was discharged home. DISCHARGE MEDICATIONS: Continue with tapering steroids and Levaquin 500 mg p.o. for three more days. DISCHARGE INSTRUCTIONS: Follow up with PMD as outpatient. Anabell Eastman M.D. I have been assigned to dictate discharge summary on this account and I was not involved in the patient's management. Naomie Nunez N.P. DR: LATISHA JOB#: [id number] CC:
--- NOTE | 2017-10-24 11:38 | Diagnostic Imaging Report ---
APPROVED REPORT CPT Code: 80454 Present Symptoms Comments: R/O DVT Pain BILATERAL: Imaging reveals a patent deep venous system bilaterally. There is no evidence of thrombus within the femoral, popliteal or tibial segments. The greater saphenous veins are also within normal limits. Doppler indicates normal spontaneous flow within these segments.
--- NOTE | 2017-10-29 18:49 | Cardiology Report ---
APPROVED REPORT EKG Measurement Heart [id number] Sinus tachycardia Septal infarct, age undetermined Abnormal ECG
== END 2017-10-22 13:05 | disposition home or self-care (01) | DRG 192 ==
LOC: EMR 15:09 → 4E 17:04 → EDBEDREQ 17:28 → 4E 10-21 12:21
DX: J44.1 Chronic obstructive pulmonary disease with (acute) exacerbation (principal); F32.9 Major depressive disorder, single episode, unspecified; D33.3 Benign neoplasm of cranial nerves; F17.200 Nicotine dependence, unspecified, uncomplicated; J06.9 Acute upper respiratory infection, unspecified; J11.1 Influenza due to unidentified influenza virus with other respiratory manifestations; Z88.0 Allergy status to penicillin; Z88.2 Allergy status to sulfonamides; Z88.8 Allergy status to other drugs, medicaments and biological substances; G51.0 Bell's palsy; R73.03 Prediabetes; F41.9 Anxiety disorder, unspecified
CPT/HCPCS: 36415; 71045; 80053; 80069; 81003; 82550; 82553; 83605; 83690; 83735; 83880; 84100; 84484; 85025; 85651; 86140; 86710; 87040; 87070; 87205; 93005; 93970; 94640; 94664; 94760; 99285; J2405; J7620

== ENCOUNTER 2018-08-04 09:35 | Outpatient (CLI) | payer MEDICARE, OTHER ==
[~2018-08-04 09:35] MED LIST changes: +ARTIFICIAL TEAR15 ML BOTH EYES; +ASPIRIN-LOW81 MG ORAL; +DIAZEPAM10 MG ORAL; +HYDROCHLOROTH12.5 M2 ORAL; +HYDROCHLOROTHIA25 MG ORAL; +IBUPROFEN200 MG ORAL; +LEVAQUIN500 MG ORAL; +MECLIZINE HCL25 MG ORAL; +NORVASC10 MG ORAL; +PATANOL1 DROP OD; +PREDNISONE20 M1 PO; +SYMBICORT 16010.2 G1 IH; +VENTOLIN HFA18 GM INH; +prednisone
[2018-08-04 10:00] VITALS: BP 151/92
--- NOTE | 2018-08-05 15:52 | GI Initial Consult Note ---
History of Present Illness General Date patient seen: Aug 04, 2018 Time patient seen: 15:47 Referring physician: APRIL Reason for Consultation: COLONOSCOPY Present Illness HPI 57 year old female patient referred by Dr. Dunlap presents today with c/o of abdominal pain, GERD and constipation. Stated she had recent lab drawn at [facility] near the end of June. Has history of colonoscopy back in 2014 noted with colonic polyps. Denies any unintentional weight loss or changes in dietary habits. No signs of abuse or neglect. Patient is not fall risk. Home Meds Active Scripts Dextran 70/Hypromellose (ARTIFICIAL TEARS EYE DROPS*) 15 Ml Drops, 1 DROP BOTH EYES TID, #15 ML 0 Refills Prov:Kishan Bell 06/02/18 Olopatadine (Patanol) 5 Ml Drops, 1 DROP OD DAILY for 10 Days, #1 UNIT Prov:Kishan Bell 06/02/18 Hydrocodone Bit/Acetaminophen 5-325* ([place] 5-325 TABLET*) 1 Each Tablet, 1 TAB ORAL Q6HR PRN for For Pain, #10 TAB Prov:PEYTON AMAYA 02/27/17 Reported Medications Prednisone (Prednisone) 20 Mg Tablet, 10 MG PO DAILY for 3 Days, TAB 10/22/17 Prednisone (Prednisone) 20 Mg Tablet, 20 MG PO DAILY for 3 Days, TAB 10/22/17 Prednisone (Prednisone) 20 Mg Tablet, 40 MG PO DAILY for 3 Days, TAB 10/22/17 [prednisone] No Conflict Check 10/22/17 Levofloxacin* (LEVAQUIN*) 500 Mg Tablet, 500 MG ORAL DAILY for 3 Days, TAB 10/22/17 Diazepam* (DIAZEPAM*) 10 Mg Tablet, 10 MG ORAL TWICE A DAY PRN for ANXIETY, #30 TAB 0 Refills 10/21/17 Ibuprofen (IBUPROFEN*) 200 Mg Tablet, 600 MG ORAL Q8H, #30 TAB 0 Refills 10/21/17 Aspirin (Aspirin EC) 81 Mg Tablet.dr, 81 MG ORAL DAILY, TAB 10/21/17 Hydrochlorothiazide* (HYDROCHLOROTHIAZIDE*) 25 Mg Tablet, 25 MG ORAL DAILY, TAB 10/21/17 Meclizine Hcl* (MECLIZINE*) 25 Mg Tablet, 25 MG ORAL DAILY, TAB 10/21/17 Albuterol Sulfate (VENTOLIN HFA) 18 Gm Hfa.aer.ad, 1 PUFF INH EVERY 6 HOURS PRN for Prn Chest Pain, #18 GM 0 Refills 10/20/17 Amlodipine Besylate (Norvasc) 10 Mg Tablet, 10 MG ORAL DAILY, TAB 10/20/17 Budesonide/Formoterol Fumarate (SYMBICORT 160-4.5 MCG INHALER) 10.2 Gm Hfa.aer.ad, 1 PUFF IH NEEDED PRN for PRN, #1 INH 0 Refills 10/20/17 Med list reviewed/reconciled: Yes Allergies: Coded Allergies: LISINOPRIL (Verified Allergy, Severe, 10/20/17) swellinh PENICILLINS (Verified Allergy, Severe, Anaphylaxis, 02/26/13) SULFA (SULFONAMIDE ANTIBIOTICS) (Verified Allergy, Unknown, 02/27/17) Patient History History Provided By: Patient, Medical Record PMH Narrative [place] Palsy GERD Depression HTN Bronchitis Past Surgical History: Cholecystectomy Polypectomy Family History Narrative Mother had heart disease Grandparents had unknown type of cancer. Social History: Denies: smoking, alcohol use, drug use, other Review of Systems All Other Systems: negative except mentioned in HPI Physical Exam Vital Signs Date Time Temp Pulse Resp B/P (MAP) Pulse Ox O2 Delivery O2 Flow Rate FiO2 08/04/18 10:00 98.2 73 151/92 95 Sp02 EP Interpretation: reviewed, normal General Appearance: well appearing, no apparent distress, alert Head: normocephalic EENT: PERRL/EOMI, normal ENT inspection Neck: supple Respiratory: normal breath sounds, no respiratory distress Cardiovascular: normal rate Gastrointestinal: normal inspection, non tender, soft, normal bowel sounds, non -distended Rectal: deferred Genitourinary: no CVA tenderness Musculoskeletal: normal inspection, back normal Neurologic: normal inspection, alert, oriented x3, responsive Psychiatric: normal inspection, judgement/insight normal, memory normal Skin: normal inspection, normal color, no rash, warm/dry, palpation normal, well hydrated Lymphatic: normal inspection, no adenopathy GI: Plan Problems: (1) Colonoscopy planned (2) History of colonoscopy with polypectomy (3) GERD (gastroesophageal reflux disease) (4) Constipation Plan EGD/colonoscopy scheduled 08/12/18. - CLD & (Nulytely/Suprep/Movi-Prep) prep instructions given and acknowledged by patient. - NPO @ OK day prior procedure explained. will follow with additional recommendations post procedure Seen with Dr. Brandt. Thank you for this patient referral. The patient was seen and examined at bedside and all new and available data was reviewed in the patients chart. I agree with the above findings, impression and plan. (Patient seen earlier today. Signature stamp does not reflect patient encounter time.). - MD Yan GageSt[facility]ont[facility] CampusCheo PANEL COVERER Aug 05, 2018 15:52
== END 2018-08-04 10:05 | disposition home or self-care (01) ==
LOC: PAN 09:35
DX: R10.9 Unspecified abdominal pain (principal); K21.9 Gastro-esophageal reflux disease without esophagitis; K59.00 Constipation, unspecified; G51.0 Bell's palsy; F32.9 Major depressive disorder, single episode, unspecified; I10 Essential (primary) hypertension; J40 Bronchitis, not specified as acute or chronic; Z88.0 Allergy status to penicillin; Z88.2 Allergy status to sulfonamides; Z88.8 Allergy status to other drugs, medicaments and biological substances
CPT/HCPCS: 99202

== ENCOUNTER 2018-08-12 09:09 | Day surgery (SDC) | payer MEDICARE, OTHER ==
[~2018-08-12] VITALS: Ht 165.1 cm; Wt 97.1 kg
--- NOTE | 2018-08-12 06:36 | Anethesia Preoperative Eval ---
Anesthesia Pre-op PMH/ROS General Date of Evaluation: Aug 12, 2018 Time of Evaluation: 06:35 Anesthesiologist: js ASA Score: ASA 3 Mallampati Score Class I : Soft palate, uvula, fauces, pillars visible Class II: Soft palate, uvula, fauces visible Class III: Soft palate, base of uvula visible Class IV: Only hard plate visible Mallampati Classification: Class II Surgeon: sabino Diagnosis: gerd Surgical Procedure: egd/colonoscopy Social History: current smoker, alcohol use Family History: no anesthesia problems Allergies: Coded Allergies: LISINOPRIL (Verified Allergy, Severe, 08/12/18) lips swelling PENICILLINS (Verified Allergy, Severe, Anaphylaxis, 02/26/13) SULFA (SULFONAMIDE ANTIBIOTICS) (Verified Allergy, Severe, 08/12/18) nausea, throat closes Medications: see eMAR Patient NPO?: Yes Past Medical History Pulmonary: Reports: asthma, COPD, other - upper respiratory infection Gastrointestinal/Genitourinary: Reports: GERD, other - ventral hernia, constipation Neurologic/Psychiatric: Reports: depression/anxiety, other - mcneil's palsy, vertigo Endocrine: Reports: DM Anesthesia Pre-op Phys. Exam Physician Exam Constitutional: NAD Neurologic: CN 2-12 intact Cardiovascular: RRR Respiratory: CTA Gastrointestinal: S/NT/ND Airway Exam Mallampati Score: Class II MO: full Neck: short TMD: 2fb ROM: full Anesthesia Pre-op A/P Risk Assessment & Plan Assessment: asa3 Plan: mac Status Change Before Surgery: No Pre-Antibiotics Drug: Nyla France MD Aug 12, 2018 06:36
[~2018-08-12 09:09] MED LIST changes: +Atropine Inj 1mg/10ml Syr IV PRN; +DiphenhydrAMINE 50mg/ml Inj IVP PRN; +LR 1000ml 1,000 ML IVLG SCH; +Midazolam 2mg/2ml Inj IVP PRN; +fentaNYL 100 mcg/2 mL IV PRN
[2018-08-12] MEDS ORDERED: MYRBETRIQ25 MG PO (09:58)
[2018-08-12] MEDS ORDERED: PAROXETINE HCL10 MG ORAL (09:58)
[2018-08-12 10:04] VITALS: BP 130/99
[2018-08-12 10:10] VITALS: BP 168/89
[2018-08-12 10:20] VITALS: BP 163/93
[2018-08-12 10:30] VITALS: BP 154/89
[2018-08-12] MEDS ORDERED: Propofol 200mg/20ml IV ONE (10:30)
[2018-08-12] MEDS ORDERED: Lidocaine 1% MPF 10mg/ml 5ml ONE (10:30)
--- NOTE | 2018-08-12 10:33 | Short Stay Surgery H&P ---
History of Present Illness History of Present Illness Chief Complaint screening colon, GERD HPI Ellen Gonzalez is a 58 year old female who was admitted on for Gerd,Colon Polyps Patient History Allergies: Coded Allergies: LISINOPRIL (Verified Allergy, Severe, 08/12/18) lips swelling PENICILLINS (Verified Allergy, Severe, Anaphylaxis, 02/26/13) SULFA (SULFONAMIDE ANTIBIOTICS) (Verified Allergy, Severe, 08/12/18) nausea, throat closes PAST MEDICAL HISTORY: (1) History of colonoscopy with polypectomy (2) GERD (gastroesophageal reflux disease) (3) Constipation (4) COPD exacerbation Medication History Scheduled Amlodipine Besylate (Norvasc), 10 MG ORAL DAILY, (Reported) Aspirin (Aspirin EC), 81 MG ORAL DAILY, (Reported) Dextran 70/Hypromellose (Artificial Tears Eye Drops*), 1 DROP BOTH EYES TID Hydrochlorothiazide* (Hydrochlorothiazide*), 25 MG ORAL DAILY, (Reported) Meclizine Hcl* (Meclizine*), 25 MG ORAL DAILY, (Reported) Mirabegron (Myrbetriq), 25 MG PO DAILY, (Reported) Olopatadine (Patanol), 1 DROP OD DAILY Paroxetine Hcl* (Paxil*), 10 MG ORAL DAILY, (Reported) Scheduled PRN Albuterol Sulfate (Ventolin Hfa), 1 PUFF INH EVERY 6 HOURS PRN for Prn Chest Pain, (Reported) Budesonide/Formoterol Fumarate (Symbicort 160-4.5 Mcg Inhaler), 1 PUFF IH NEEDED PRN for PRN, (Reported) Diazepam* (Diazepam*), 10 MG ORAL TWICE A DAY PRN for ANXIETY, (Reported) Discontinued Medications Hydrocodone Bit/Acetaminophen 5-325* ([place] 5-325 Tablet*), 1 TAB ORAL Q6HR PRN for For Pain Discontinued Reason: Pt stopped taking med Ibuprofen (Ibuprofen*), 600 MG ORAL Q8H, (Reported) Discontinued Reason: Pt stopped taking med Levofloxacin* (Levaquin*), 500 MG ORAL DAILY, (Reported) Discontinued Reason: Pt stopped taking med Prednisone (Prednisone), 40 MG PO DAILY, (Reported) Discontinued Reason: Pt stopped taking med Prednisone (Prednisone), 20 MG PO DAILY, (Reported) Discontinued Reason: Pt stopped taking med Prednisone (Prednisone), 10 MG PO DAILY, (Reported) Discontinued Reason: Pt stopped taking med [prednisone], (Reported) Discontinued Reason: Pt stopped taking med Review of Systems Cardiovascular: Reports: no symptoms Respiratory: Reports: no symptoms Gastrointestinal: Reports: gastro esophageal reflux disease Genitourinary: Reports: no symptoms Neurologic: Reports: see HPI Endocrine: Reports: see HPI Hematologic: Reports: see HPI Physical Exam Vital Signs Last Vital Signs Date Time Temp Pulse Resp B/P (MAP) Pulse Ox O2 Delivery O2 Flow Rate FiO2 08/12/18 10:04 97.4 69 18 130/99 98 Room Air Skin: normal HENT: normal Heart: normal Lungs: normal Abdomen: normal Extremities: normal Plan Plan of Care esophagogastroduodenoscopy and colonoscopy Attestation Are the patient's medical conditions optimized for surgery? Attestation Response: yes Solomon Brandt MD Aug 12, 2018 10:33
--- NOTE | 2018-08-12 10:34 | Pre-Procedure Note/Attestation ---
Pre-Procedure Note/Attestation Complete Prior to Procedure Planned Procedure: not applicable Procedure Narrative: esophagogastroduodenoscopy and colonoscopy Indications for Procedure Pre-Operative Diagnosis: screening colon, GERD Attestation I attest that I discussed the nature of the procedure; its benefits; risks and complications; and alternatives (and the risks and benefits of such alternatives ), prior to the procedure, with the patient (or the patient's legal quality assurance representative). I attest that, if there was a reasonable possibility of needing a blood transfusion, the patient (or the patient's legal quality assurance representative) was given the [facility] standardized written summary, pursuant to the Jimbo Wilder Blood Safety Act ([place] Health and Safety Code # 1645, as amended). I attest that I re-evaluated the patient just prior to the surgery and that there has been no change in the patient's H&P, except as documented below: Solomon Brandt MD Aug 12, 2018 10:34
[2018-08-12 10:45] VITALS: BP 152/88
--- NOTE | 2018-08-12 11:18 | Endoscopy Procedure Note ---
Endoscopy Procedure Note General Indication for Procedure: screening colon, GERD Procedures Performed: EGD, colonoscopy Operative Findings/Diagnosis: 3 colon and one gastric polyp Specimen: yes Pt Tolerated Procedure Well: Yes Estimated Blood Loss: none Anesthesia Anesthesiologist: mattie Anesthesia: MAC Inserted Devices Implant(s) used?: No Quality Quality of Bowel Preparation: Good Did scope reach the cecum?: Yes Was there any complications?: No GI Core Measures 50 yrs or older w/o bx or poly: No 10yrs. F/U not recommended: Yes If not recommended, why?: Above average risk 10 yrs. F/U needed: Yes 18 years or older w/prev. colo: No Solomon Brandt MD Aug 12, 2018 11:18
--- NOTE | 2018-08-12 11:50 | Immediate Post-Op Evaluation ---
Immediate Post-Op Evalulation Immediate Post-Op Evalulation Procedure: egd/colonoscopy/bx Date of Evaluation: Aug 12, 2018 Time of Evaluation: 11:39 IV Fluids: 400ml 0.9ns Blood Products: none Estimated Blood Loss: negligible Blood Pressure Systolic: 145 Blood Pressure Diastolic: 91 Pulse Rate: 71 Respiratory Rate: 18 O2 Sat by Pulse Oximetry: 99 Temperature (Fahrenheit): 97.6 Pain Score (1-10): 0 Nausea: No Vomiting: No Complications none Patient Status: awake, reacts, patent Hydration Status: adequate Drug: Nyla France MD Aug 12, 2018 11:50
--- NOTE | 2018-08-12 11:52 | 48 Hour Post Anesthesia Eval ---
Post Anesthesia Evaluation Procedure: egd/colonoscopy/bx Date of Evaluation: Aug 12, 2018 Time of Evaluation: 11:41 Blood Pressure Systolic: 146 0: 91 Pulse Rate: 71 Respiratory Rate: 18 Temperature (Fahrenheit): 97.6 O2 Sat by Pulse Oximetry: 100 Airway: patent Nausea: No Vomiting: No Pain Intensity: 0 Hydration Status: adequate Cardiopulmonary Status: stable Mental Status/LOC: patient returned to baseline Post-Anesthesia Complications: none Follow-up care needed: N/A Nyla Quinn MD Aug 12, 2018 11:52
[2018-08-12 12:15] VITALS: BP 155/82
--- NOTE | 2018-08-12 16:54 | Cardiology Report ---
APPROVED REPORT EKG Measurement Heart [id number] [place] 162P0 [id number] Normal sinus rhythm Low voltage QRS Cannot rule out Anterior infarct, age undetermined Abnormal ECG
--- NOTE | 2018-08-12 20:15 | Procedure Note ---
DATE OF PROCEDURE: 08/12/2018 SURGEON: Solomon Brandt M.D. PROCEDURE: Upper endoscopy with biopsy and polypectomy and colonoscopy with biopsy. ANESTHESIA: Per Dr. Nyla Coffey. INSTRUMENT: Olympus adult flexible upper endoscope and colonoscope. INDICATIONS: Screening colonoscopy evaluation, abdominal pain, and chronic GERD. REASON FOR PROCEDURE: The procedure, risks, benefits, and possible consequences, including hemorrhage, aspiration, perforation and infection, and alternative treatments, were explained to the patient/legal guardian by Dr. Solomon Brandt and the patient/legal guardian understood and accepted these risks. DESCRIPTION OF PROCEDURE: After informed consent was obtained and the patient was adequately sedated, Olympus upper endoscope was advanced from mouth into the second portion of the duodenum and retroflexion was performed in the stomach. The patient has evidence of diffuse gastritis. Random biopsies from antrum and body was obtained to rule out H. pylori infection. The patient had evidence of polyps in the body of the stomach. This polyp in the midbody on the posterior wall on the lesser curvature measured roughly about 6 to 7 mm removed with a cold snare polypectomy technique. The rest of the examination was grossly within normal limits. At this time, the upper endoscope was retrieved and the patient was turned over for colonoscopy. First, rectal exam was performed, which was normal. Then, the scope was advanced from the rectum into the cecum then subsequently into the terminal ileum. Quality of prep overall was very good. The patient had significant diverticulosis throughout the colon both in the right and left colon. The patient had total of 3 polyps, 1 in the descending colon, 1 in the sigmoid, and 1 in the rectum. They all were diminutive polyps, all removed with the cold biopsy forceps technique. Retroflexion of rectum showed evidence of internal hemorrhoids, medium and nonbleeding. SUMMARY OF FINDINGS: 1. Gastritis, status post biopsy. 2. Gastric polyps status post polypectomy. 3. Diverticulosis, significant. 4. Three colonic polyps removed, see above for details. 5. Internal hemorrhoids. RECOMMENDATIONS: Follow up biopsies and treat accordingly. Solomon Brandt M.D. DR: NELLY JOB#: [id number] CC:
== END 2018-08-12 12:35 | disposition home or self-care (01) ==
LOC: GAS 09:09
DX: Z12.11 Encounter for screening for malignant neoplasm of colon (principal); K21.9 Gastro-esophageal reflux disease without esophagitis; R10.9 Unspecified abdominal pain; K57.90 Diverticulosis of intestine, part unspecified, without perforation or abscess without bleeding; K31.7 Polyp of stomach and duodenum; K64.8 Other hemorrhoids; K63.5 Polyp of colon; K29.70 Gastritis, unspecified, without bleeding; J44.9 Chronic obstructive pulmonary disease, unspecified; Z79.82 Long term (current) use of aspirin; Z88.0 Allergy status to penicillin; Z88.2 Allergy status to sulfonamides; F17.210 Nicotine dependence, cigarettes, uncomplicated; F32.9 Major depressive disorder, single episode, unspecified; F41.9 Anxiety disorder, unspecified; E11.9 Type 2 diabetes mellitus without complications
CPT/HCPCS: 43239; 45380; 82962; 93005; J2704; 94003; 94150

== ENCOUNTER 2018-10-27 09:36 | Outpatient (CLI) | payer MEDICARE, OTHER ==
[~2018-10-27 09:36] MED LIST changes: -Atropine Inj 1mg/10ml Syr IV PRN; -DiphenhydrAMINE 50mg/ml Inj IVP PRN; -LR 1000ml 1,000 ML IVLG SCH; +MYRBETRIQ25 MG PO; -Midazolam 2mg/2ml Inj IVP PRN; +PAROXETINE HCL10 MG ORAL; -fentaNYL 100 mcg/2 mL IV PRN
[2018-10-27 10:04] VITALS: BP 128/87
[2018-10-27] MEDS ORDERED: AVAPRO300 MG ORAL (10:06)
[2018-10-27] MEDS ORDERED: VITAMIN D2400 UNI1 PO (10:06)
[2018-10-27] MEDS ORDERED: PROTONIX40 MG ORAL (10:06)
--- NOTE | 2018-10-27 11:24 | GI Progress Note ---
Assessment/Plan Problems: (1) H. pylori infection ICD Codes: A04.8 - Other specified bacterial intestinal infections SNOMED: 224565916 (2) Constipation ICD Codes: K59.00 - Constipation, unspecified SNOMED: 60188700 (3) Abdominal pain ICD Codes: R10.9 - Unspecified abdominal pain SNOMED: 10129984 (4) GERD (gastroesophageal reflux disease) ICD Codes: K21.9 - Gastro-esophageal reflux disease without esophagitis SNOMED: 346567262 Status: stable Status Narrative Seen with Dr. Brandt. Assessment/Plan SUMMARY OF FINDINGS: 1. Gastritis, status post biopsy. Positive for H. pylori 2. Gastric polyps status post polypectomy. 3. Diverticulosis, significant. 4. Three colonic polyps removed, see above for details. 5. Internal hemorrhoids. RECOMMENDATIONS: Quadruple therapy treatment for H. pylori given penicillin allergy Linzess 145 mcg Return to clinic in 3 months Repeat colonoscopy in 3 years The patient was seen and examined at bedside and all new and available data was reviewed in the patients chart. I agree with the above findings, impression and plan. (Patient seen earlier today. Signature stamp does not reflect patient encounter time.). - Solomon Brandt MD Subjective Subjective Abdominal pain GERD Constipation Status post EGD and colonoscopy Objective Last 24 Hour Vital Signs Date Time Temp Pulse Resp B/P (MAP) Pulse Ox O2 Delivery O2 Flow Rate FiO2 10/27/18 10:04 97.7 90 18 128/87 100 General Appearance: WD/WN, no apparent distress, alert Cardiovascular: normal rate Respiratory/Chest: normal breath sounds, no respiratory distress Abdominal Exam: normal bowel sounds, non tender, soft Extremities: normal range of motion, non-tender Gwendolyn Gomes [employer] Oct 27, 2018 11:24
== END 2018-10-27 10:06 | disposition home or self-care (01) ==
LOC: PAN 09:36
DX: A04.8 Other specified bacterial intestinal infections (principal); K59.00 Constipation, unspecified; K21.9 Gastro-esophageal reflux disease without esophagitis; K57.90 Diverticulosis of intestine, part unspecified, without perforation or abscess without bleeding; K64.8 Other hemorrhoids
CPT/HCPCS: 99212

== ENCOUNTER 2019-02-02 09:40 | Outpatient (CLI) | payer MEDICARE, OTHER ==
[~2019-02-02 09:40] MED LIST changes: +AVAPRO300 MG ORAL; +PROTONIX40 MG ORAL; +VITAMIN D2400 UNI1 PO
--- NOTE | 2019-02-02 10:13 | General Progress Note ---
Assessment/Plan Problem List: (1) History of colonoscopy with polypectomy ICD Codes: Z98.890 - Other specified postprocedural states; Z86.010 - Personal history of colonic polyps SNOMED: 322355816, 367825559, 551061731, 745154475890 (2) H. pylori infection ICD Codes: A04.8 - Other specified bacterial intestinal infections SNOMED: 034388323 (3) Abdominal pain ICD Codes: R10.9 - Unspecified abdominal pain SNOMED: 34804324 (4) GERD (gastroesophageal reflux disease) ICD Codes: K21.9 - Gastro-esophageal reflux disease without esophagitis SNOMED: 656204227 (5) Constipation ICD Codes: K59.00 - Constipation, unspecified SNOMED: 90765942 (6) COPD exacerbation Assessment/Plan: decrease LInzess to 72 try to get Nexium breath test for today repeat colonoscopy 3 years Subjective ROS Limited/Unobtainable: Yes Allergies: Coded Allergies: LISINOPRIL (Verified Allergy, Severe, 08/12/18) lips swelling PENICILLINS (Verified Allergy, Severe, Anaphylaxis, 02/26/13) SULFA (SULFONAMIDE ANTIBIOTICS) (Verified Allergy, Severe, 08/12/18) nausea, throat closes Objective General Appearance: alert EENT: normal ENT inspection Neck: supple Cardiovascular: normal rate Respiratory/Chest: lungs clear Abdomen: normal bowel sounds, non tender, soft Extremities: non-tender Solomon Brandt MD February 02, 2019 10:13
[2019-02-02 13:34] VITALS: BP 121/86
== END 2019-02-02 11:40 | disposition home or self-care (01) ==
LOC: PAN 09:40
DX: R10.9 Unspecified abdominal pain (principal); A04.8 Other specified bacterial intestinal infections; Z98.890 Other specified postprocedural states; K21.9 Gastro-esophageal reflux disease without esophagitis; K59.00 Constipation, unspecified; J44.1 Chronic obstructive pulmonary disease with (acute) exacerbation; Z88.8 Allergy status to other drugs, medicaments and biological substances; Z88.0 Allergy status to penicillin; Z88.2 Allergy status to sulfonamides
CPT/HCPCS: 83013; G0463; 99212

== ENCOUNTER 2019-02-05 22:58 | Emergency (ER) | payer MEDICARE, OTHER ==
[~2019-02-05] VITALS: Ht 165.1 cm; Wt 94.3 kg
--- NOTE | 2019-02-05 23:16 | NUR ---
ED Nurse Note: pt came from home c/o possible blood in her uriin and pt complains of pain left sided abdomen pain. per pt she hasnt a menstrual cycle since 2009.
[2019-02-05 23:20] VITALS: BP 148/97
[2019-02-05] MEDS ORDERED: Ketorolac 30mg Inj IV ONE (23:30)
--- NOTE | 2019-02-05 23:38 | Emergency Room Report ---
History of Present Illness General Chief Complaint: Female Urogenital Problems Source: Patient Present Illness HPI Is a 58-year-old female with history of high blood pressure. She presents with chief complaint of left flank pain. His been ongoing for a week. Radiate to the groin. She also has dysuria and frequency. Also with hematuria. Pain is sharp in nature. 7 out of 10. No fever or chills. No nausea no vomiting. Nothing made it better. Urinating made it worse. Has not take anything for this. Allergies: Coded Allergies: LISINOPRIL (Verified Allergy, Severe, 08/12/18) lips swelling PENICILLINS (Verified Allergy, Severe, Anaphylaxis, 02/26/13) SULFA (SULFONAMIDE ANTIBIOTICS) (Verified Allergy, Severe, 08/12/18) nausea, throat closes Patient History Past Medical History: see triage record, old chart reviewed, HTN Past Surgical History: other Pertinent Family History: none Social History: Denies: smoking Last Menstrual Period: na Now: No Immunizations: other Reviewed Nursing Documentation: PMH: Agreed; PSxH: Agreed Nursing Documentation-PMH Past Medical History: No History, Except For Hx Cardiac Problems: Yes Hx Hypertension: Yes Hx Asthma: Yes Hx Diabetes: Yes - PRE DIABETIC Hx Cancer: No Hx Gastrointestinal Problems: Yes 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 Hx Vertigo: Yes Review of Systems Eye: Denies: eye pain, blurred vision ENT: Denies: ear pain, nose congestion, throat swelling Respiratory: Denies: cough, shortness of breath Cardiovascular: Denies: chest pain, palpitations Gastrointestinal: Denies: abdominal pain, diarrhea, nausea, vomiting Genitourinary: Reports: dysuria, hematuria Musculoskeletal: Denies: back pain, joint pain Skin: Denies: rash Neurological: Denies: headache, numbness Endocrine: Denies: increased thirst, increased urine Hematologic/Lymphatic: Denies: easy bruising All Other Systems: negative except mentioned in HPI Physical Exam Vital Signs Date Time Temp Pulse Resp B/P (MAP) Pulse Ox O2 Delivery O2 Flow Rate FiO2 02/05/19 23:05 98.1 92 18 93 Room Air vitals unremarkable Sp02 EP Interpretation: reviewed, normal General Appearance: well appearing, no apparent distress, alert, obese Head: normocephalic, atraumatic Eyes: bilateral eye PERRL, bilateral eye EOMI ENT: hearing grossly normal, normal pharynx Neck: full range of motion, supple, no meningismus Respiratory: chest non-tender, lungs clear, normal breath sounds Cardiovascular #1: regular rate, rhythm, no murmur Gastrointestinal: normal bowel sounds, non tender, no mass, no organomegaly, no bruit, non-distended Musculoskeletal: back normal, gait/station normal, normal range of motion Psychiatric: mood/affect normal Skin: warm/dry Medical Decision Making Diagnostic Impression: Primary Impression: Pyelonephritis ER Course Patient presents with pyelonephritis. No evidence of any kidney stone. no evidence of any obstruction or dissection. Patient felt better now. We'll discharge home. CT/MRI/US Diagnostic Results CT/MRI/US Diagnostic Results : Imaging Test Ordered: CT abdomen and pelvis Impression Read by radiologist. Renal cyst. Fibroids. No ureteral stone. Last Vital Signs Date Time Temp Pulse Resp B/P (MAP) Pulse Ox O2 Delivery O2 Flow Rate FiO2 02/05/19 23:05 98.1 92 18 93 Room Air Status: improved Disposition: HOME, SELF-CARE Condition: Stable Scripts Ibuprofen* (MOTRIN*) 600 Mg Tablet 600 MG ORAL THREE TIMES A DAY, #30 TAB 0 Refills Prov: Sebastien Gomes MD 02/06/19 Cephalexin* (KEFLEX*) 500 Mg Capsule 500 MG ORAL TID, #30 CAP Prov: Sebastien Gomes MD 02/06/19 Referrals: Maurilio Dunlap MD (PCP) Additional Instructions: Follow-up with your DrAbram in 2 to 3 days if not better. Return if worse. Sebastien Gomes MD February 05, 2019 23:38
[2019-02-05 23:41] LABS: APPEARANCE,URINE CLOUDY; BASOPHILS % (AUTO) 1.2 % (0.0-2.0); BILIRUBIN, URINE NEGATIVE (NEGATIVE); EOSINOPHILS % (AUTO) 1.7 % (0.0-3.0); GLUCOSE, URINE (UA) NEGATIVE (NEGATIVE); HEMOGLOBIN 13.4 G/DL (12.0-16.0); KETONES,URINE 1+ (NEGATIVE); LEUKOCYTE ESTERASE ,URINE 2+ (NEGATIVE); LYMPHOCYTES % (AUTO) 45.4 % (20.0-45.0); MEAN CORPUSCULAR VOLUME 87 FL (80-99); MONOCYTES % (AUTO) 6.3 % (1.0-10.0); NEUTROPHILS % (AUTO) 45.4 % (45.0-75.0); NITRITE,URINE POSITIVE (NEGATIVE); PH,URINE 5 (4.5-8.0); PLATELET COUNT 350 K/UL (150-450); PROTEIN,URINE 2+ (NEGATIVE); RED CELL DISTRIBUTION WIDTH 12.9 % (11.6-14.8); UROBILINOGEN,URINE 1 MG/DL (0.0-1.0); WHITE BLOOD COUNT 10.6 K/UL (4.8-10.8)
--- NOTE | 2019-02-05 23:44 | NUR ---
ED Nurse Note: pt returned from CT
[2019-02-05 23:51] LABS: ANION GAP 8 mmol/L (5-15); BLOOD UREA NITROGEN 9 mg/dL (7-18); CALCIUM 9.7 MG/DL (8.5-10.1); CARBON DIOXIDE 27 MMOL/L (21-32); CHLORIDE 104 MMOL/L (98-107); POTASSIUM 3.5 MMOL/L (3.5-5.1); SODIUM 139 MMOL/L (136-145)
[2019-02-05 23:52] LABS: COLOR,URINE YELLOW
[2019-02-06] MEDS ORDERED: cefTRIAXone 1 GM in NS 55 ML IVPB ONE ×2
--- NOTE | 2019-02-06 00:03 | Diagnostic Imaging Report ---
EXAM: CT Abdomen + Pelvis Without Intravenous Contrast CLINICAL HISTORY: ABD PAIN TECHNIQUE: Axial computed tomography images of the abdomen + pelvis without intravenous contrast. CTDI is 24.94 mGy and DLP is 1345 mGy-cm. One or more of the following dose reduction techniques were used: automated exposure control, adjustment of the mA and/or kV according to patient size, use of iterative reconstruction technique. COMPARISON: No relevant prior studies available. FINDINGS: Small pericardial effusion. Small hiatal hernia. Atelectasis and/or scar. No urolithiasis or hydronephrosis. No evidence for acute pancreatitis or other acute abnormality of the unenhanced solid viscera. Low-density adrenal nodules compatible with adenomas. Renal cysts. Multiple pelvic masses suggestive of fibroids including exophytic fibroids. Suspected ovarian follicles. Bladder is not well evaluated secondary to underdistention. No bowel obstruction. Diverticulosis without diverticulitis. No evidence for appendicitis. Fat-containing ventral and umbilical hernias. Osseous degenerative changes. IMPRESSION: Small pericardial effusion. No evidence for pneumonia or edema at lung bases. No acute process within the abdomen or pelvis. Nonemergent/incidental findings as discussed body report.
[2019-02-06] MEDS ORDERED: IBUPROFEN600 MG ORAL (00:20)
[2019-02-06] MEDS ORDERED: CEPHALEXIN500 MG ORAL (00:20)
[2019-02-06 00:28] VITALS: BP 151/94
--- NOTE | 2019-02-06 00:30 | NUR ---
ER DISCHARGE NOTE: Patient is cleared to be discharged per ERMD, pt is aox4, on room air, with stable vital signs. pt was given dc and prescription instructions, pt was able to verbalize understanding, pt id band and iv site removed without complications. pt is able to ambulate with steady gait. pt took all belongings.
== END 2019-02-06 00:30 | disposition home or self-care (01) ==
LOC: EMR 23:24
DX: N12 Tubulo-interstitial nephritis, not specified as acute or chronic (principal); Z88.2 Allergy status to sulfonamides; Z88.0 Allergy status to penicillin; I10 Essential (primary) hypertension; R73.03 Prediabetes; I31.3 Pericardial effusion (noninflammatory); K57.90 Diverticulosis of intestine, part unspecified, without perforation or abscess without bleeding
CPT/HCPCS: 36415; 74176; 80048; 81003; 85025; 87086; 96361; 96365; 96375; 99284; J0696; J1885

== ENCOUNTER 2019-07-29 13:52 | Outpatient (CLI) | payer MEDICARE, OTHER ==
[~2019-07-29 13:52] MED LIST changes: +CEPHALEXIN500 MG ORAL; +IBUPROFEN600 MG ORAL
--- NOTE | 2019-07-29 14:18 | General Progress Note ---
Assessment/Plan Assessment/Plan: assessment/Plan Problem List: (1) COPD (chronic obstructive pulmonary disease) ICD Codes: J44.9 - Chronic obstructive pulmonary disease, unspecified SNOMED: 42652519 (2) Constipation ICD Codes: K59.00 - Constipation, unspecified SNOMED: 90314063 (3) GERD (gastroesophageal reflux disease) ICD Codes: K21.9 - Gastro-esophageal reflux disease without esophagitis SNOMED: 048476678 (4) Abdominal pain ICD Codes: R10.9 - Unspecified abdominal pain SNOMED: 66273250 (5) H. pylori infection ICD Codes: A04.8 - Other specified bacterial intestinal infections SNOMED: 249625859 Assessment/Plan: repeat treatment for H,pylori (different regimen) Levaquin and amoxicillin Trulance RTC 3 months for breath test Subjective ROS Limited/Unobtainable: Yes Allergies: Coded Allergies: LISINOPRIL (Verified Allergy, Severe, 08/12/18) lips swelling PENICILLINS (Verified Allergy, Severe, Anaphylaxis, 02/26/13) SULFA (SULFONAMIDE ANTIBIOTICS) (Verified Allergy, Severe, 08/12/18) nausea, throat closes Objective General Appearance: alert EENT: normal ENT inspection Neck: supple Cardiovascular: normal rate Respiratory/Chest: lungs clear Abdomen: normal bowel sounds, non tender, soft Extremities: non-tender Solomon Brandt MD Jul 29, 2019 14:18
[2019-07-29 15:22] VITALS: BP 141/80
== END 2019-07-29 15:52 | disposition home or self-care (01) ==
LOC: PAN 13:52
DX: J44.9 Chronic obstructive pulmonary disease, unspecified (principal); K59.00 Constipation, unspecified; K21.9 Gastro-esophageal reflux disease without esophagitis; R10.9 Unspecified abdominal pain; A04.8 Other specified bacterial intestinal infections; Z88.8 Allergy status to other drugs, medicaments and biological substances; Z88.0 Allergy status to penicillin; Z88.2 Allergy status to sulfonamides
CPT/HCPCS: 99212

== ENCOUNTER 2019-09-16 13:01 | Outpatient (CLI) | payer MEDICARE, OTHER ==
--- NOTE | 2019-09-16 14:12 | General Progress Note ---
Assessment/Plan Assessment/Plan: assessment/Plan Problem List: (1) COPD (chronic obstructive pulmonary disease) ICD Codes: J44.9 - Chronic obstructive pulmonary disease, unspecified SNOMED: 93688099 (2) Constipation ICD Codes: K59.00 - Constipation, unspecified SNOMED: 60481796 (3) GERD (gastroesophageal reflux disease) ICD Codes: K21.9 - Gastro-esophageal reflux disease without esophagitis SNOMED: 021574905 (4) Abdominal pain ICD Codes: R10.9 - Unspecified abdominal pain SNOMED: 82809252 (5) H. pylori infection ICD Codes: A04.8 - Other specified bacterial intestinal infections SNOMED: 445681246 Assessment/Plan: repeat treatment for H,pylori (different regimen) Levaquin and amoxicillin>>> done>> repeat BT next month Trulance Subjective ROS Limited/Unobtainable: Yes Allergies: Coded Allergies: LISINOPRIL (Verified Allergy, Severe, 08/12/18) lips swelling PENICILLINS (Verified Allergy, Severe, Anaphylaxis, 02/26/13) SULFA (SULFONAMIDE ANTIBIOTICS) (Verified Allergy, Severe, 08/12/18) nausea, throat closes Objective General Appearance: alert EENT: normal ENT inspection Neck: supple Cardiovascular: normal rate Respiratory/Chest: lungs clear Abdomen: normal bowel sounds, non tender, soft Extremities: non-tender Solomon Brandt MD Sep 16, 2019 14:12
== END 2019-09-16 15:30 | disposition home or self-care (01) ==
LOC: PAN 13:01
DX: K59.00 Constipation, unspecified (principal); K21.9 Gastro-esophageal reflux disease without esophagitis; R10.9 Unspecified abdominal pain; A04.8 Other specified bacterial intestinal infections; J44.9 Chronic obstructive pulmonary disease, unspecified; Z88.0 Allergy status to penicillin; Z88.2 Allergy status to sulfonamides
CPT/HCPCS: 99212

== ENCOUNTER 2019-11-04 13:17 | Outpatient (CLI) | payer MEDICARE, OTHER ==
--- NOTE | 2019-11-04 17:30 | Progress Note ---
DATE: 11/04/2019 GASTROENTEROLOGY PROGRESS NOTE SUBJECTIVE: At this time, the patient presents with complaint of abdominal pain. The patient has complained of constipation, states that she has had no bowel movement for approximately 3 days. The patient was given 2 amps during her past visit, which she states has minimal to no effect. The patient stated she did take Linzess 145 mcg prior, but it caused her to have severe diarrhea. The patient also states that she does have Linzess 72 mcg as well at home. In addition, the patient does complain of generalized abdominal pain. OBJECTIVE: GENERAL APPEARANCE: The patient is positive for H. pylori, status post failed treatment x2 in which we used quadruple therapy treatment and triple therapy treatment. No apparent distress. The patient is alert and oriented x4. Ambulatory. VITAL SIGNS: Temperature 98.7, blood pressure 139/91, pulse 85, oxygen saturation 100%. HEENT: Head is atraumatic and normocephalic. CARDIAC: Regular rate and rhythm. LUNGS: Clear bilaterally to auscultation. ABDOMEN: Soft. Mild tenderness to the left upper and lower quadrants. EXTREMITIES: No pedal edema. No cyanosis. No clubbing. ASSESSMENT: 1. Constipation. 2. H. pylori positive. 3. Rule out diverticulitis. PLAN: In terms of the patient's constipation, we will discontinue Trulance. We instructed the patient to take an initial dose of Linzess 145 mcg x1 and then maintain herself on maintenance dose of Linzess of 72 mcg. In terms of the patient's abdominal pain, we will order a CT scan to rule out any diverticulitis. The patient is to return to clinic after imaging studies. In terms of the H. pylori positive s/p failed treatment x2, there is a new medication that is coming out to help treat the H. pylori, which we will wait for prior to giving the patient new treatment. We will follow the patient. Solomon Brandt M.D. Misty-Cheo Gomes N.P. DR: DAVID JOB#: [id number] CC: MATHEW
== END 2019-11-04 15:17 | disposition home or self-care (01) ==
LOC: PAN 13:17
DX: K59.00 Constipation, unspecified (principal); B96.81 Helicobacter pylori [H. pylori] as the cause of diseases classified elsewhere; R10.84 Generalized abdominal pain
CPT/HCPCS: 99212

== ENCOUNTER → 2019-11-10 | Outpatient (CLI) | payer MEDICARE, MEDICAID ==
[~2019-11-10] MED LIST changes: +NEXIUM40 MG ORAL; +VITAMIN D PO
[2019-11-10 09:23] LABS: ALANINE AMINOTRANSFERASE 17 U/L (12-78); ALBUMIN 3.8 G/DL (3.4-5.0); ALBUMIN/GLOBULIN RATIO 0.9 (1.0-2.7); ALKALINE PHOSPHATASE 100 U/L (46-116); AMYLASE 47 U/L (25-115); ANION GAP 8 mmol/L (5-15); ASPARTATE AMINO TRANSFERASE 14 U/L (15-37); BILIRUBIN,TOTAL 0.4 MG/DL (0.2-1.0); BLOOD UREA NITROGEN 14 mg/dL (7-18); CALCIUM 9.6 MG/DL (8.5-10.1); CARBON DIOXIDE 30 MMOL/L (21-32); CHLORIDE 102 MMOL/L (98-107); CREATININE 1.1 MG/DL (0.55-1.30); POTASSIUM 3.9 MMOL/L (3.5-5.1); SODIUM 140 MMOL/L (136-145)
--- NOTE | 2019-11-10 11:35 | Diagnostic Imaging Report ---
Clinical Indication: Abdominal pain and constipation, history of H. pylori Technique: Patient given oral contrast. IV administration nonionic contrast. Venous phase spiral acquisition obtained through the abdomen and pelvis. Multiplanar reconstructions were generated. Total dose length product 578 mGycm. CTDIvol(s) 10 mGy. Dose reduction achieved using automated exposure control Comparison: 02/05/2019 Findings: There is fairly extensive colonic diverticulosis. No evidence of diverticulitis. The appendix is normal. No small bowel distention or small bowel wall thickening. Ingested contrast has traversed the entirety of the GI tract. The distal esophagus, stomach, duodenum are unremarkable. There is a small umbilical hernia which contains only fat. There is also small fat-containing right upper quadrant ventral hernia The gallbladder has been removed. There is very mild central intrahepatic biliary ductal dilatation. There is also mild extrahepatic biliary ductal dilatation, common bile duct measuring up to 9 mm in diameter. This appears unchanged from the earlier exam, however. No focal hepatic abnormality demonstrated. The pancreas, spleen, are all unremarkable. There is a 2.2 cm mass coming off of the lower pole of the left adrenal. There is more questionable small upper pole right adrenal nodule. These demonstrate nonspecific soft tissue attenuation apparent contrast study. However, previous noncontrast exam demonstrated single digit Hounsfield unit attenuation The kidneys demonstrate cysts bilaterally. Largest cyst on the right measures 8.3 cm in diameter. Largest on the left measures 4 cm. Subcentimeter low-attenuation lesions in the right kidney are too small to characterize. No renal or ureteral calculi, hydronephrosis, or hydroureter demonstrated. The uterus is again demonstrated to be enlarged, demonstrating multiple masses, several of which are exophytic. No ovarian or adnexal mass demonstrated. Prominent bilateral iliac chain nodes are again demonstrated. A single prominent node is again demonstrated in the right lower quadrant mesenteric fat. The included lung bases demonstrate a small cystic space in the posterior right lower lobe. There is minimal anterior wall pericardial fluid, decreased from the previous study. The bones demonstrate degenerative spondylosis changes. Impression: No acute abnormality Colonic diverticulosis. No evidence of diverticulitis Mild central intrahepatic and extrahepatic biliary ductal dilatation, probably related to age and postcholecystectomy state, unchanged from prior exam. Correlation with liver function tests is recommended nonetheless Bilateral adrenal masses, demonstrated on prior noncontrast CT to be 9 adenomas Nonspecific prominent bilateral iliac chain and right lower quadrant mesenteric nodes. Also evident previously. Bilateral renal cysts. Right renal subcentimeter low-attenuation lesions, too small to characterize, most likely benign simple cysts. No further follow-up necessary Enlarged fibroid uterus, also previously demonstrated small cystic space in the posterior right lower lobe Decreased pericardial fluid Other findings as noted, including degenerative spondylosis, fat-containing umbilical and ventral hernias, prior cholecystectomy The CT scanner at [facility] is accredited by the [employer] and the scans are performed using protocols designed to limit radiation exposure to as low as reasonably achievable to attain images of sufficient resolution adequate for diagnostic evaluation.
== END | disposition home or self-care (01) ==
LOC: CAT 08:33 → EDSTATUS 09:00
DX: R10.9 Unspecified abdominal pain (principal); K57.90 Diverticulosis of intestine, part unspecified, without perforation or abscess without bleeding; K43.9 Ventral hernia without obstruction or gangrene; K42.9 Umbilical hernia without obstruction or gangrene; M47.9 Spondylosis, unspecified; Z90.49 Acquired absence of other specified parts of digestive tract
CPT/HCPCS: 36415; 74177; 80053; 82150; 83690; Q9965

== ENCOUNTER 2019-11-11 12:52 | Outpatient (CLI) | payer MEDICARE, MEDICAID ==
[~2019-11-11 12:52] MED LIST changes: -NEXIUM40 MG ORAL; -VITAMIN D PO
--- NOTE | 2019-11-11 13:46 | General Progress Note ---
Assessment/Plan Problem List: (1) History of colonoscopy with polypectomy ICD Codes: Z98.890 - Other specified postprocedural states; Z86.010 - Personal history of colonic polyps SNOMED: 830033355, 769781608, 087905311, [id number] (2) H. pylori infection ICD Codes: A04.8 - Other specified bacterial intestinal infections SNOMED: 718035012 (3) Abdominal pain ICD Codes: R10.9 - Unspecified abdominal pain SNOMED: 29487893 (4) GERD (gastroesophageal reflux disease) ICD Codes: K21.9 - Gastro-esophageal reflux disease without esophagitis SNOMED: 619912317 (5) Constipation ICD Codes: K59.00 - Constipation, unspecified SNOMED: 43768698 (6) COPD (chronic obstructive pulmonary disease) ICD Codes: J44.9 - Chronic obstructive pulmonary disease, unspecified SNOMED: 58177718 (7) Ventral hernia ICD Codes: K43.9 - Ventral hernia without obstruction or gangrene SNOMED: 678646574 Assessment/Plan: ct reviewed: Procedure: CT Abdomen Pelvis w/Contrast Clinical Indication: Abdominal pain and constipation, history of H. pylori Technique: Patient given oral contrast. IV administration nonionic contrast. Venous phase spiral acquisition obtained through the abdomen and pelvis. Multiplanar reconstructions were generated. Total dose length product 578 mGycm. CTDIvol(s) 10 mGy. Dose reduction achieved using automated exposure control Comparison: 02/05/2019 Findings: There is fairly extensive colonic diverticulosis. No evidence of diverticulitis. The appendix is normal. No small bowel distention or small bowel wall thickening. Ingested contrast has traversed the entirety of the GI tract. The distal esophagus, stomach, duodenum are unremarkable. There is a small umbilical hernia which contains only fat. There is also small fat-containing right upper quadrant ventral hernia The gallbladder has been removed. There is very mild central intrahepatic biliary ductal dilatation. There is also mild extrahepatic biliary ductal dilatation, common bile duct measuring up to 9 mm in diameter. This appears unchanged from the earlier exam, however. No focal hepatic abnormality demonstrated. The pancreas, spleen, are all unremarkable. There is a 2.2 cm mass coming off of the lower pole of the left adrenal. There is more questionable small upper pole right adrenal nodule. These demonstrate nonspecific soft tissue attenuation apparent contrast study. However, previous noncontrast exam demonstrated single digit Hounsfield unit attenuation The kidneys demonstrate cysts bilaterally. Largest cyst on the right measures 8.3 cm in diameter. Largest on the left measures 4 cm. Subcentimeter low-attenuation lesions in the right kidney are too small to characterize. No renal or ureteral calculi, hydronephrosis, or hydroureter demonstrated. The uterus is again demonstrated to be enlarged, demonstrating multiple masses, several of which are exophytic. No ovarian or adnexal mass demonstrated. Prominent bilateral iliac chain nodes are again demonstrated. A single prominent node is again demonstrated in the right lower quadrant mesenteric fat. The included lung bases demonstrate a small cystic space in the posterior right lower lobe. There is minimal anterior wall pericardial fluid, decreased from the previous study. The bones demonstrate degenerative spondylosis changes. Impression: No acute abnormality Colonic diverticulosis. No evidence of diverticulitis Mild central intrahepatic and extrahepatic biliary ductal dilatation, probably related to age and postcholecystectomy state, unchanged from prior exam. Correlation with liver function tests is recommended nonetheless Bilateral adrenal masses, demonstrated on prior noncontrast CT to be 9 adenomas Nonspecific prominent bilateral iliac chain and right lower quadrant mesenteric nodes. Also evident previously. Bilateral renal cysts. Right renal subcentimeter low-attenuation lesions, too small to characterize, most likely benign simple cysts. No further follow-up necessary Enlarged fibroid uterus, also previously demonstrated small cystic space in the posterior right lower lobe Decreased pericardial fluid Other findings as noted, including degenerative spondylosis, fat-containing umbilical and ventral hernias, prior cholecystectomy The CT scanner at [facility] is accredited by the [employer] and the scans are performed using protocols designed to limit radiation exposure to as low as reasonably achievable to attain images of sufficient resolution adequate for diagnostic evaluation. plan ERCP for papillary stenosis given patient tis symptomatic trial of motegrity Subjective ROS Limited/Unobtainable: Yes Allergies: Coded Allergies: LISINOPRIL (Verified Allergy, Severe, 08/12/18) lips swelling PENICILLINS (Verified Allergy, Severe, Anaphylaxis, 02/26/13) SULFA (SULFONAMIDE ANTIBIOTICS) (Verified Allergy, Severe, 08/12/18) nausea, throat closes Objective General Appearance: alert EENT: normal ENT inspection Neck: supple Cardiovascular: normal rate Respiratory/Chest: decreased breath sounds Abdomen: normal bowel sounds, non tender, soft Extremities: non-tender Solomon Brandt MD Nov 11, 2019 13:46
== END 2019-11-11 14:52 | disposition home or self-care (01) ==
LOC: PAN 12:52
DX: R10.9 Unspecified abdominal pain (principal); K21.9 Gastro-esophageal reflux disease without esophagitis; Z98.890 Other specified postprocedural states; Z86.010 Personal history of colon polyps; A04.8 Other specified bacterial intestinal infections; K59.00 Constipation, unspecified; J44.9 Chronic obstructive pulmonary disease, unspecified; K43.9 Ventral hernia without obstruction or gangrene; K57.90 Diverticulosis of intestine, part unspecified, without perforation or abscess without bleeding; Z90.49 Acquired absence of other specified parts of digestive tract; N28.1 Cyst of kidney, acquired; D25.9 Leiomyoma of uterus, unspecified; M47.9 Spondylosis, unspecified
CPT/HCPCS: 99212

== ENCOUNTER 2019-11-19 07:16 | Day surgery (SDC) | payer MEDICARE, OTHER ==
[~2019-11-19] VITALS: Ht 166.4 cm; Wt 92.5 kg
[2019-11-19] VITALS (11 sets, daily range): BP systolic 122–150; BP diastolic 67–84
[~2019-11-19 07:16] MED LIST changes: +LR 1000ml 1,000 ML IVLG SCH
[2019-11-19] MEDS ORDERED: Midazolam 2mg/2ml Inj ONE (08:16)
[2019-11-19] MEDS ORDERED: fentaNYL 100 mcg/2 mL IV ONE (08:16)
[2019-11-19] MEDS ORDERED: Iothalamate Meglumine 60% 50ML INJ ONE ×2 (08:29→09:35)
--- NOTE | 2019-11-19 08:38 | Anethesia Preoperative Eval ---
Anesthesia Pre-op PMH/ROS General Date of Evaluation: Nov 19, 2019 Time of Evaluation: 08:35 Anesthesiologist: Karen Yanes CRNA ASA Score: ASA 3 Mallampati Score Class I : Soft palate, uvula, fauces, pillars visible Class II: Soft palate, uvula, fauces visible Class III: Soft palate, base of uvula visible Class IV: Only hard plate visible Mallampati Classification: Class II Surgeon: Rikki Diagnosis: GERD, H. Pylori Surgical Procedure: ERCP Anesthesia History: none Social History: current smoker Family History: no anesthesia problems Allergies: Coded Allergies: LISINOPRIL (Verified Allergy, Severe, 08/12/18) lips swelling PENICILLINS (Verified Allergy, Severe, Anaphylaxis, 02/26/13) SULFA (SULFONAMIDE ANTIBIOTICS) (Verified Allergy, Severe, 08/12/18) nausea, throat closes Medications: see eMAR Patient NPO?: Yes NPO Date: Nov 19, 2019 NPO Time: 00:00 Past Medical History Cardiovascular: Reports: HTN; Denies: CAD, GA, valve dz, arrhythmia, other Pulmonary: Reports: COPD; Denies: asthma, ANGELI, other Gastrointestinal/Genitourinary: Reports: GERD; Denies: CRI, ESRD, other Neurologic/Psychiatric: Reports: depression/anxiety, other - brain tumor, s/p radiation; Denies: dementia, CVA, TIA Endocrine: Reports: DM - borderline, not on meds; Denies: hypothyroidism, steroids, other HEENT: Reports: [place] (L), other - Facial nerve palsy (L); Denies: cataract (L), cataract (R), glaucoma, [place] (R) Hematology/Immune: Denies: anemia, DVT, bleeding disorder, other Musculoskeletal/Integumentary: Reports: other - Ventral hernia; Denies: OA, RA, DJD, DDD, edema Other: obesity PMH Narrative: as noted above PSxH Narrative: Cholecystectomy Anesthesia Pre-op Phys. Exam Physician Exam Constitutional: NAD Neurologic: other - alert & oreinted x 3, (L) facial palsy Cardiovascular: RRR Respiratory: CTA Gastrointestinal: S/NT/ND Airway Exam Mallampati Score: Class II Neck: FROM TMD: >3 FB ROM: full Teeth: intact Dentures: no upper, no lower Anesthesia Pre-op A/P Studies Pre-op Studies: EKG - NSR Risk Assessment & Plan Assessment: ASA 3, ok to proceed Plan: MAC, GETA back up Status Change Before Surgery: No Pre-Antibiotics Given Within 1 Hr of Incision: No Karen Yanes CRNA Nov 19, 2019 08:37
[2019-11-19] MEDS ORDERED: NEXIUM40 MG ORAL (08:39)
[2019-11-19] MEDS ORDERED: VITAMIN D PO (08:39)
[2019-11-19] MEDS ORDERED: LR 1000ml ONE (09:00)
[2019-11-19] MEDS ORDERED: Esmolol 100mg/10ml Inj ONE (09:00)
[2019-11-19] MEDS ORDERED: Lidocaine 1% MPF 10mg/ml 5ml ONE (09:00)
[2019-11-19] MEDS ORDERED: Propofol 200mg/20ml IV ONE (09:00)
[2019-11-19] MEDS ORDERED: Glucagon 1mg Inj ONE (09:00)
--- NOTE | 2019-11-19 09:14 | Pre-Procedure Note/Attestation ---
Pre-Procedure Note/Attestation Complete Prior to Procedure Planned Procedure: not applicable Procedure Narrative: ercp Indications for Procedure Pre-Operative Diagnosis: papillary stenosis Attestation I attest that I discussed the nature of the procedure; its benefits; risks and complications; and alternatives (and the risks and benefits of such alternatives ), prior to the procedure, with the patient (or the patient's legal national account representative). I attest that, if there was a reasonable possibility of needing a blood transfusion, the patient (or the patient's legal national account representative) was given the [facility] standardized written summary, pursuant to the Jimbo Shaggy Blood Safety Act ([place] Health and Safety Code # 1645, as amended). I attest that I re-evaluated the patient just prior to the surgery and that there has been no change in the patient's H&P, except as documented below: Solomon Brandt MD Nov 19, 2019 09:14
[2019-11-19 09:15] LABS: BASOPHILS % (AUTO) 1.3 % (0.0-2.0); EOSINOPHILS % (AUTO) 2.8 % (0.0-3.0); HEMATOCRIT 40.4 % (37.0-47.0); HEMOGLOBIN 13.6 G/DL (12.0-16.0); LYMPHOCYTES % (AUTO) 39.6 % (20.0-45.0); MEAN CORPUSCULAR VOLUME 89 FL (80-99); MONOCYTES % (AUTO) 6.8 % (1.0-10.0); NEUTROPHILS % (AUTO) 49.4 % (45.0-75.0); PLATELET COUNT 339 K/UL (150-450); RED BLOOD COUNT 4.56 M/UL (4.20-5.40); RED CELL DISTRIBUTION WIDTH 13.3 % (11.6-14.8); WHITE BLOOD COUNT 7.3 K/UL (4.8-10.8)
--- NOTE | 2019-11-19 09:15 | Short Stay Surgery H&P ---
History of Present Illness History of Present Illness Chief Complaint papillary stenosis HPI Ellen Gonzalez is a 59 year old female who was admitted on for Abdominal Pain,H Pylori Patient History Allergies: Coded Allergies: LISINOPRIL (Verified Allergy, Severe, 08/12/18) lips swelling PENICILLINS (Verified Allergy, Severe, Anaphylaxis, 02/26/13) SULFA (SULFONAMIDE ANTIBIOTICS) (Verified Allergy, Severe, 08/12/18) nausea, throat closes PAST MEDICAL HISTORY: (1) History of colonoscopy with polypectomy (2) H. pylori infection (3) Abdominal pain (4) GERD (gastroesophageal reflux disease) (5) Ventral hernia (6) Constipation (7) COPD (chronic obstructive pulmonary disease) (8) Bronchitis, acute Medication History Scheduled Amlodipine Besylate (Norvasc), 10 MG ORAL DAILY, (Reported) Aspirin (Aspirin EC), 81 MG ORAL DAILY, (Reported) Esomeprazole Magnesium (Nexium), 40 MG ORAL DAILY, (Reported) Hydrochlorothiazide* (Hydrochlorothiazide*), 25 MG ORAL DAILY, (Reported) Irbesartan* (Avapro*), 150 MG ORAL DAILY, (Reported) Meclizine Hcl* (Meclizine*), 25 MG ORAL DAILY, (Reported) Mirabegron (Myrbetriq), 25 MG PO DAILY, (Reported) [Vitamin D], 50,000 UNITS PO ONCE A WEEK, (Reported) Scheduled PRN Albuterol Sulfate (Ventolin Hfa), 1 PUFF INH EVERY 6 HOURS PRN for Prn Chest Pain, (Reported) Budesonide/Formoterol Fumarate (Symbicort 160-4.5 Mcg Inhaler), 1 PUFF IH NEEDED PRN for PRN, (Reported) Diazepam* (Diazepam*), 10 MG ORAL TWICE A DAY PRN for ANXIETY, (Reported) Discontinued Medications Cephalexin* (Keflex*), 500 MG ORAL TID Discontinued Reason: Pt stopped taking med Ergocalciferol (Vitamin D2) (Vitamin D2), Unknown Dose PO DAILY, (Reported) Discontinued Reason: Pt stopped taking med Ibuprofen* (Motrin*), 600 MG ORAL THREE TIMES A DAY Discontinued Reason: Pt stopped taking med Pantoprazole* (Protonix*), 40 MG ORAL DAILY, (Reported) Discontinued Reason: Pt stopped taking med Paroxetine Hcl* (Paxil*), 10 MG ORAL DAILY, (Reported) Discontinued Reason: Pt stopped taking med Review of Systems Cardiovascular: Reports: no symptoms Respiratory: Reports: no symptoms Skeletal: Reports: no symptoms Gastrointestinal: Reports: no symptoms Genitourinary: Reports: no symptoms Neurologic: Reports: no symptoms Endocrine: Reports: no symptoms Hematologic: Reports: no symptoms Physical Exam Vital Signs Last Vital Signs Date Time Temp Pulse Resp B/P (MAP) Pulse Ox O2 Delivery O2 Flow Rate FiO2 11/19/19 09:08 Room Air 11/19/19 09:03 97.4 65 18 122/84 100 Labs Laboratory Tests Test 11/19/19 08:55 White Blood Count Pending Red Blood Count Pending Hemoglobin Pending Hematocrit Pending Mean Corpuscular Volume Pending Mean Corpuscular Hemoglobin Pending Mean Corpuscular Hemoglobin Concent Pending Red Cell Distribution Width Pending Platelet Count Pending Mean Platelet Volume Pending Neutrophils (%) (Auto) Pending Lymphocytes (%) (Auto) Pending Monocytes (%) (Auto) Pending Eosinophils (%) (Auto) Pending Basophils (%) (Auto) Pending Skin: normal HENT: normal Heart: normal Lungs: normal Abdomen: normal Extremities: normal Plan Plan of Care ercp Attestation Are the patient's medical conditions optimized for surgery? Attestation Response: yes Solomon Brandt MD Nov 19, 2019 09:15
[2019-11-19] MEDS ORDERED: Hydromorphone 0.5mg/0.5ml inj IVP PRN (10:00)
--- NOTE | 2019-11-19 10:21 | Immediate Post-Op Evaluation ---
Immediate Post-Op Evalulation Immediate Post-Op Evalulation Procedure: ERCP Date of Evaluation: Nov 19, 2019 Time of Evaluation: 10:15 IV Fluids: LR 400 ml Blood Pressure Systolic: 153 Blood Pressure Diastolic: 96 Pulse Rate: 74 Respiratory Rate: 20 O2 Sat by Pulse Oximetry: 100 Temperature (Fahrenheit): 97.6 Pain Score (1-10): 5 Nausea: Yes Vomiting: No Complications none Patient Status: awake, reacts, patent Hydration Status: adequate Given Within 1 Hr of Incision: Karen Diaz CRNA Nov 19, 2019 10:21
--- NOTE | 2019-11-19 10:41 | Endoscopy Procedure Note ---
Endoscopy Procedure Note General Indication for Procedure: papillary stenosis Procedures Performed: ERCP Operative Findings/Diagnosis: same Specimen: none Pt Tolerated Procedure Well: Yes Estimated Blood Loss: none Anesthesia Anesthesiologist: neal Anesthesia: MAC Inserted Devices Implant(s) used?: No GI Core Measures 50 yrs or older w/o bx or poly: Not Applicable 10yrs. F/U recommended: Not Applicable Solomon Brandt MD Nov 19, 2019 10:41
[2019-11-19] MEDS ORDERED: Metoclopramide 10mg/2ml Inj IVP PRN (11:15)
--- NOTE | 2019-11-19 12:09 | 48 Hour Post Anesthesia Eval ---
Post Anesthesia Evaluation Procedure: ERCP Date of Evaluation: Nov 19, 2019 Time of Evaluation: 12:09 Blood Pressure Systolic: 137 0: 72 Pulse Rate: 85 Respiratory Rate: 22 Temperature (Fahrenheit): 97.8 O2 Sat by Pulse Oximetry: 97 Airway: patent Nausea: Yes Vomiting: No Pain Intensity: 4 Hydration Status: adequate Cardiopulmonary Status: stable Mental Status/LOC: patient returned to baseline Follow-up Care/Observations: per GI Post-Anesthesia Complications: none Follow-up care needed: N/A Karen Yanes CRNA Nov 19, 2019 12:09
--- NOTE | 2019-11-19 16:31 | Diagnostic Imaging Report ---
INDICATION: Pain, intraoperative TECHNIQUE: Intraoperative imaging Fluoroscopy time: 173 seconds Total dose: 1.69 mGym2 Total number of images: 5 COMPARISON: None FINDINGS: Intraoperative images demonstrate opacification of the common bile duct, subsequent images demonstrate deployment of stone extraction balloon IMPRESSION: Intraoperative imaging, as described
--- NOTE | 2019-11-19 21:00 | Procedure Note ---
DATE OF PROCEDURE: 11/19/2019 SURGEON: Solomon Brandt M.D. PROCEDURE: ERCP with sphincterotomy and balloon sweep. ANESTHESIA: Per Karen CARLIN. INSTRUMENT: Olympus adult flexible ERCP scope. INDICATION: Papillary stenosis. REASON FOR PROCEDURE: The procedure, risks, benefits, and possible consequences, including hemorrhage, aspiration, perforation and infection, and alternative treatments, were explained to the patient/legal guardian by Dr. Solomon Brandt and the patient/legal guardian understood and accepted these risks. DESCRIPTION OF PROCEDURE: After informed consent was obtained and the patient was adequately sedated, ERCP scope was advanced from mouth into the second portion of the duodenum. It was a challenging procedure, using a to go to the pancreatic duct few times and then finally we successfully got into the common bile duct using a sphincterotome. Initial cholangiogram showed mildly dilated common bile duct, highly suspicious for papillary stenosis. As we got into the ampulla, the duct was getting smaller. The maximum dimension for the duct was about 10 mm. Then over a guidewire using a sphincterotome, 95% sphincterotomy was performed. Lots of bile was easily flowing after the sphincterotomy. Then, we used a balloon to sweep the duct multiple times and to perform balloon occlusion cholangiogram. Given the flow of contrast was excellent, no stent was placed. The patient tolerated the procedure very well without any complications. SUMMARY OF FINDINGS: Papillary stenosis status post ERCP sphincterotomy, balloon sweep and balloon occlusion cholangiogram. RECOMMENDATIONS: The patient to be observed in the recovery area if he is stable to be discharged and follow up in the clinic in one week. Solomon Brandt M.D. DR: Kateryna JOB#: [id number] CC:
== END 2019-11-19 13:00 | disposition home or self-care (01) ==
LOC: GAS 07:16
DX: K83.1 Obstruction of bile duct (principal); K21.9 Gastro-esophageal reflux disease without esophagitis; J44.9 Chronic obstructive pulmonary disease, unspecified; Z79.82 Long term (current) use of aspirin; Z79.899 Other long term (current) drug therapy; E66.9 Obesity, unspecified; Z90.49 Acquired absence of other specified parts of digestive tract
CPT/HCPCS: 36415; 43277; 74328; 76000; 82962; 85025; 93005; J0360; J1170; J1610; J2250; J2405; J2704; J2765; J3010; J7120; 94003; 94150

== ENCOUNTER 2020-04-04 09:55 | Outpatient (CLI) | payer MEDICARE, OTHER ==
[~2020-04-04 09:55] MED LIST changes: -LR 1000ml 1,000 ML IVLG SCH; +NEXIUM40 MG ORAL; +VITAMIN D PO
[2020-04-04 13:32] VITALS: BP 131/95
[2020-04-04] MEDS ORDERED: MOTEGRITY2 MG PO (13:36)
[2020-04-04] MEDS ORDERED: AMLODIPINE BES2.5 MG ORAL (13:36)
--- NOTE | 2020-04-04 17:15 | Progress Note ---
DATE: 04/04/2020 SUBJECTIVE: The patient is having some abdominal pain and bloating. PHYSICAL EXAMINATION: VITAL SIGNS: Temperature 97.1, blood pressure 131/95, pulse 80, respirations 20. HEENT: Normocephalic and atraumatic. Sclerae are anicteric. NECK: Supple. No evidence of obvious lymphadenopathy. CARDIOVASCULAR: Regular rate and rhythm. Plus S1, S2. LUNGS: Clear to auscultation bilaterally. ABDOMEN: Positive bowel sounds. Soft. Minimal tenderness to palpation in the epigastric area. No rebound. No guarding. No peritoneal sign. EXTREMITIES: No cyanosis, no clubbing, no edema. ASSESSMENT AND PLAN: This is a 59-year-old female with persistent H. pylori infection resistant to all the treatments. We are going to try Talicia today. The patient was ordered Talicia. The patient is going for a rectocele surgery next Friday. The patient to come back in 3 months after the antibiotic treatment for H. pylori for breath test. Solomon Brandt M.D. DR: Kateryna JOB#: [id number] CC:
== END 2020-04-04 11:55 | disposition home or self-care (01) ==
LOC: PAN 09:55
DX: R10.9 Unspecified abdominal pain (principal); R14.0 Abdominal distension (gaseous); B96.81 Helicobacter pylori [H. pylori] as the cause of diseases classified elsewhere
CPT/HCPCS: 99212

== ENCOUNTER → 2020-04-06 | Outpatient (CLI) | payer MEDICARE, OTHER ==
[~2020-04-06] MED LIST changes: +AMLODIPINE BES2.5 MG ORAL; +MOTEGRITY2 MG PO
--- NOTE | 2020-04-06 16:45 | Diagnostic Imaging Report ---
Indication: Cough, history of bronchitis Technique: 2 views of the chest Comparison: 10/20/2017 Findings: Lungs and pleural spaces are clear. The heart size is normal. The aorta is tortuous and ectatic. There are cholecystectomy clips noted. No significant interim change The bones are unremarkable. Impression: Negative
== END | disposition home or self-care (01) ==
LOC: RAD 15:16
DX: Z01.818 Encounter for other preprocedural examination (principal); R05 Cough; Z90.49 Acquired absence of other specified parts of digestive tract
CPT/HCPCS: 71046

== ENCOUNTER 2020-08-03 13:03 | Outpatient (CLI) | payer MEDICARE, OTHER ==
[2020-08-03 13:14] VITALS: BP 113/79
--- NOTE | 2020-08-03 16:07 | General Progress Note ---
Subjective ROS Limited/Unobtainable: Yes Allergies: Coded Allergies: LISINOPRIL (Verified Allergy, Severe, 08/12/18) lips swelling PENICILLINS (Verified Allergy, Severe, Anaphylaxis, 02/26/13) SULFA (SULFONAMIDE ANTIBIOTICS) (Verified Allergy, Severe, 08/12/18) nausea, throat closes Objective Last 24 Hour Vital Signs Date Time Temp Pulse Resp B/P (MAP) Pulse Ox O2 Delivery O2 Flow Rate FiO2 08/03/20 13:14 97.3 79 16 113/79 99 Laboratory Tests 08/03/20 13:20: Helicobacter pylori Breath Test [Pending] General Appearance: alert EENT: normal ENT inspection Neck: normal alignment Cardiovascular: normal rate Respiratory/Chest: lungs clear Abdomen: normal bowel sounds, non tender, soft Extremities: non-tender Assessment/Plan Problem List: (1) H. pylori infection ICD Codes: A04.8 - Other specified bacterial intestinal infections SNOMED: 733780455 (2) Abdominal pain ICD Codes: R10.9 - Unspecified abdominal pain SNOMED: 23975765 (3) GERD (gastroesophageal reflux disease) ICD Codes: K21.9 - Gastro-esophageal reflux disease without esophagitis SNOMED: 860814980 (4) Constipation ICD Codes: K59.00 - Constipation, unspecified SNOMED: 06619598 Assessment/Plan: s/p TElicia treatment BT today cont Solomon Padilla MD Aug 03, 2020 16:07
== END 2020-08-03 15:03 | disposition home or self-care (01) ==
LOC: PAN 13:03
DX: R10.9 Unspecified abdominal pain (principal); K21.9 Gastro-esophageal reflux disease without esophagitis; K59.00 Constipation, unspecified; A04.8 Other specified bacterial intestinal infections; Z88.0 Allergy status to penicillin; Z88.2 Allergy status to sulfonamides; Z88.8 Allergy status to other drugs, medicaments and biological substances
CPT/HCPCS: 83013; G0463; 99212

== ENCOUNTER 2020-08-14 19:36 | Emergency (ER) | payer MEDICARE, OTHER ==
[~2020-08-14] VITALS: Ht 165.1 cm; Wt 94.8 kg
[2020-08-14 19:45] VITALS: BP 132/85
--- NOTE | 2020-08-14 19:45 | NUR ---
ED Nurse Note: Patient walked in from home c/o right sided neck aching pain radiates to right arm 10/10 ongoing for 1 week. Patient denies trauma or injury. Patient aao x 4 and ambulatory with steady gait, Patent repos she has hx of chronic arthritis and torn rotator cuff flare ups. Patient stable during assessment.
[2020-08-14] MEDS ORDERED: Ketorolac 30mg Inj IM ONE (20:15)
[2020-08-14] MEDS ORDERED: Methocarbamol 750mg tab ORAL ONE (20:15)
--- NOTE | 2020-08-14 20:24 | NUR ---
ED Nurse Note: Sling applied on right arm by construction equipment technician.
[2020-08-14] MEDS ORDERED: ROBAXIN-750750 MG PO (20:35)
[2020-08-14] MEDS ORDERED: LIDODERM700 M1 TOPIC (20:35)
[2020-08-14 20:38] VITALS: BP 130/80
--- NOTE | 2020-08-14 20:38 | NUR ---
ER DISCHARGE NOTE: Patient is cleared to be discharged per ERMD, pt is aox4, on room air, with stable vital signs. pt was given dc and prescription instructions, pt was able to verbalize understanding, pt id band removed. pt is able to ambulate with steady gait. pt took all belongings. pt stable upon discharge.
--- NOTE | 2020-08-16 14:05 | Emergency Room Report ---
History of Present Illness General Chief Complaint: Neck Pain Source: Patient Present Illness HPI 60-year-old female presents complaining of right shoulder and neck pain. States she has history of chronic neck pain rotator cuff issues on the right side. States she has had these pains for years. States she has had a recent flareup over the last few days. States her hvgo-pis-xqefndm medications have not hel ped. Pain is throbbing, 7 out of 10, nonradiating. Denies any fall or injury. No other aggravating relieving factors. Denies any other associated symptoms Allergies: Coded Allergies: LISINOPRIL (Verified Allergy, Severe, 08/12/18) lips swelling PENICILLINS (Verified Allergy, Severe, Anaphylaxis, 02/26/13) SULFA (SULFONAMIDE ANTIBIOTICS) (Verified Allergy, Severe, 08/12/18) nausea, throat closes COVID-19 Screening Contact w/high risk pt: No Experienced COVID-19 symptoms?: No COVID-19 Testing performed CYBER SPECIAL AGENT: No Patient History Past Medical History: DM, HTN Pertinent Family History: none Social History: Denies: smoking, alcohol use, drug use Now: No Immunizations: UTD Reviewed Nursing Documentation: PMH: Agreed; PSxH: Agreed Nursing Documentation-PMH Hx Cardiac Problems: Yes Hx Hypertension: Yes Hx Asthma: Yes Hx Diabetes: Yes - BORDERLINE Hx Cancer: No Hx Gastrointestinal Problems: Yes 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 Hx Vertigo: Yes Review of Systems All Other Systems: negative except mentioned in HPI Physical Exam Vital Signs Date Time Temp Pulse Resp B/P (MAP) Pulse Ox O2 Delivery O2 Flow Rate FiO2 08/14/20 19:40 98.4 87 18 137/89 (105) 97 Room Air Sp02 EP Interpretation: reviewed, normal General Appearance: no apparent distress, alert, GCS 15, non-toxic Head: normocephalic, atraumatic Eyes: bilateral eye normal inspection, bilateral eye PERRL ENT: hearing grossly normal, normal pharynx, no angioedema, normal voice Neck: full range of motion, no bony tend, supple/symm/no masses, tender lateral Respiratory: chest non-tender, lungs clear, normal breath sounds, speaking full sentences Cardiovascular #1: regular rate, rhythm, no edema Cardiovascular #2: 2+ carotid (R), 2+ carotid (L), 2+ radial (R), 2+ radial (L), 2+ dorsalis pedis (R), 2+ dorsalis pedis (L) Gastrointestinal: normal bowel sounds, non tender, soft, non-distended, no guarding, no rebound Rectal: deferred Genitourinary: normal inspection, no CVA tenderness Musculoskeletal: back normal, normal range of motion, gait/station normal, tender - Right shoulder Neurologic: alert, motor strength/tone normal, oriented x3, sensory intact, responsive, speech normal Psychiatric: judgement/insight normal, memory normal, mood/affect normal, no suicidal/homicidal ideation Reflexes: 3+ bicep (R), 3+ bicep (L), 3+ tricep (R), 3+ tricep (L), 3+ knee (R), 3+ knee (L) Skin: no rash Lymphatic: no adenopathy Medical Decision Making Diagnostic Impression: Primary Impression: Neck pain ER Course Hospital Course 60-year-old female presents with neck and right shoulder pain. Differential diagnoses include: neck strain, shoulder strain, dislocation/fracture Clinical course Patient placed on stretcher. After initial history and physical exam reveals middle-aged female in no acute distress. On exam there is no midline neck tenderness or shoulder tenderness. Full range of motion to the shoulder. There is pain over the trapezius and to the right shoulder. Full range of motion noted. No crepitus. Patient would benefit from physical therapy. States that she will follow-up with her orthopedic. Declines narcotics. Given Toradol, Robaxin, Lidoderm here. On reassessment pain improved. Safe for discharge close outpatient follow-up Diagnosis - neck pain Stable and discharged to home with prescription for Robaxin, Lidoderm. f/u PMD/ortho. Return to ED if symptoms recur or worsen Last Vital Signs Date Time Temp Pulse Resp B/P (MAP) Pulse Ox O2 Delivery O2 Flow Rate FiO2 08/14/20 20:38 98.3 79 16 130/80 97 Room Air Status: improved Disposition: HOME, SELF-CARE Condition: Stable Scripts Lidocaine Patch* (Lidoderm Patch*) 1 Each Adh..patch 1 PATCH TOPIC DAILY, #7 PATCH 0 Refills Patch(es) may remain in place for up to 12 hours in any 24-hour period. Prov: Manjeet Barraza MD 11/16/20 Methocarbamol* (ROBAXIN-750*) 750 Mg Tablet 750 MG PO TID, #21 TAB 0 Refills Prov: Manjeet Barraza MD 08/14/20 Referrals: Zelalem Liz MD, Payam MD (PCP) Patient Instructions: Cervical Strain and Sprain With Rehab-SportsMed, Rotator Cuff Injury Manjeet Barraza MD Aug 16, 2020 14:05
== END 2020-08-14 20:38 | disposition home or self-care (01) ==
LOC: EMR 20:20
DX: M54.2 Cervicalgia (principal); M25.511 Pain in right shoulder; E11.9 Type 2 diabetes mellitus without complications; I10 Essential (primary) hypertension; J45.909 Unspecified asthma, uncomplicated; G51.0 Bell's palsy
CPT/HCPCS: 96372; 99283; J1885